=== PATIENT | male | born 1985 | race Caucasian/White ===

== ENCOUNTER → 2023-12-08 08:55 | Outpatient (REF) | payer SELFPAY | LOC: HWRAD 08:55 | PROVIDERS: ATTENDING PHYSICIAN Student in an Organized Health Care Education/Training Program | DX: I73.9 Peripheral vascular disease, unspecified (principal); G89.29 Other chronic pain | CPT/HCPCS: 74177; Q9967 ==

== ENCOUNTER 2023-12-29 23:37 | Inpatient (IN) | payer MEDICAID, SELFPAY ==
[2023-12-29 18:30] VITALS: BP 122/68
[2023-12-29 18:57] LABS: % Basophils 0.3 % (0-2); % Eosinophils 0.3 % (0-6); % Immature Granulocytes 0.5 % (0-0.5); % Lymphocytes 6.7 % (20.5-51.1); % Monocytes 6.3 % (1.7-9.3); % Neutrophils 85.9 % (42.2-75.2); Absolute Basophils 0.1 10^3/uL (0-0.2); Absolute Eosinophils 0.1 10^3/uL (0-0.7); Absolute Immature Granulocytes 0.1 10^3/uL (0-0.05); Absolute Lymphocytes 1.2 10^3/uL (1.2-3.4); Absolute Monocytes 1.1 10^3/uL (0.1-0.6); Absolute Neutrophils 15.2 10^3/uL (1.4-6.5); Hematocrit 38.4 % (39.0-52.0); Hemoglobin 13.8 g/dL (13.0-18.0); Mean Corp Hgb Conc. 35.9 g/dL (33.0-37.0); Mean Corpuscular Hgb 29.2 pg (27.0-31.0); Mean Corpuscular Volume 81.2 fL (80.0-94.0); Nucleated Red Blood Cells % 0 % (-); Platelet Count 282 10^3/uL (130-400); Red Blood Cell Count 4.73 10^6/uL (4.70-6.10); Red Cell Dist. Width 12.8 % (11.5-14.5); White Blood Cell Count 17.7 10^3/uL (4.8-10.8)
--- NOTE | 2023-12-29 18:59 | ED.GENMED ---
History of Present Illness
General
Chief Complaint: Headache
Source: patient and family (Mother and father)
Exam Limitations: none
Time Seen by Provider: 12/29/23 18:41
Nursing documentation reviewed up to this point in time: agreed with
Travel History
Have you had any contact with someone who has COVID-19?: No
Do you have any symptoms of coronavirus? Fever > 100 degrees, chills, cough, shortness of breath, sore throat, loss of taste or smell, muscle aches, or headache?: No
History of Present Illness
History of Present Illness:
38-year-old male with past medical history of chronic low back pain and sciatica status post L4-L5 laminectomy in 2017 who had a recent trial of spinal stimulator that was removed at [facility] yesterday who presents to the emergency room with
his parents for evaluation of headache. Patient reports that he had the spinal stimulator removed yesterday at [facility]. He says that shortly thereafter he started to have positional headache and decided to stop on his way home at [facility] in the emergency room to be assessed. While he was there he had full workup including CT head, MRI of the lumbar spine, labs�CT head was negative, MRI showed signs concerning for small CSF leak. Apparently neurosurgery was consulted and
patient says that they opted for conservative approach without any intervention and watchful waiting. He has been taking Tylenol and Motrin today but says that his headache is becoming progressively worse and now is quite severe which prompted him
to come to the emergency room to be reassessed. He says in addition to his headache today he has had low-grade fevers at home with a Tmax of 99.9 �F�this in the setting of taking Tylenol and Motrin as above. He says he has had some chills. He has
had nausea but fortunately no vomiting. He complains of photosensitivity. He reports some pain and stiffness in his neck. He denies any chest pain or abdominal pain. He says he has some mild low back pain with some radicular symptoms consistent
with his typical sciatica but that this is no worse than usual. He denies any other complaints.
Past History
Past History
ED Past Medical History: None
Review of Systems
Review of Systems
All Other Systems: ROS reviewed and negative except as documented in HPI and ROS
Constitutional: Reports fever and chills
EENT: Denies sore throat or runny nose
Respiratory: Denies cough or trouble breathing
Cardiac: Denies chest pain or palpitations
ABD/GI: Reports nausea; Denies abdominal pain or vomiting
: Denies flank pain
Musculoskeletal: Reports neck pain and back pain (Chronic)
Neurological: Reports headache; Denies dizzy, weakness or numbness
Phy Exam
Physical Exam
Physical Exam:
General: Awake, alert, appears very uncomfortable sitting with his eyes closed, towel draped over his head
Head: Normocephalic, atraumatic
Eyes: Conjunctiva normal, EOMI, pupils 5 mm and reactive to light bilaterally
Throat: Airway intact, handling secretions
Neck: Trachea midline, some nuchal rigidity on attempts at passive range of motion of the neck
Lungs: Clear to auscultation bilaterally, no wheezing, rales, rhonchi
Heart: Tachycardia with regular rhythm, no murmurs, gallops, or rubs
Abd: Soft, non distended, nontender
Neuro: Cranial nerves grossly intact, speech fluid, no motor or sensory deficits
Skin: no rash
Extremities: No edema in extremities, equal pulses in all extremities
Scores
Heart Failure Risk
Heart Failure Risk Score: Not Applicable
Heart Score for Chest Pain Patients
STEMI patient?: Not applicable
Withdrawal Assessment of Alcohol
Withdrawal Assessment Completed?: Not applicable
Course
Orders/Labs/Results
Orders:
Orders
12/29/23 18:41
CT Head W/o Iv Contrast Urgent
Comment:
Reason For Exam: headache
12/29/23 18:43
Electrocardiogram (*1) Urgent
Reason for Study: Bradycardia / Tachycardia
EKG- Treatment ONCE
12/29/23 18:45
Complete Blood Count/With Diff Urgent
Comprehensive Metabolic Panel Urgent
Magnesium Urgent
12/29/23 18:58
0.9% Sodium Chloride 500 ml [Nss] 500 ml IV BOLUS
Diphenhydramine [Benadryl] 25 mg IV NOW STA
Ketorolac [Toradol] 15 mg IV NOW STA
Metoclopramide [Reglan] 10 mg IV NOW STA
12/29/23 19:58
CSF Cell Count Stat
Date Specimen was Collected: 12/29/23
Time Specimen was Collected: 22:10
Spinal Fluid Glucose Urgent
Date Specimen was Collected: 12/29/23
Time Specimen was Collected: 22:11
Spinal Fluid Protein Urgent
Date Specimen was Collected: 12/29/23
Time Specimen was Collected: 22:11
CSF Culture with Gram Stain Urgent
THOMAS Source: Csf
Specimen Description:
Date Specimen was Collected: 12/29/23
Time Specimen was Collected: 22:11
Meningitis Panel, CSF by PCR Urgent
THOMAS Source: Csf
Specimen Description:
12/29/23 19:59
CSF Cell Count Urgent
Date Specimen was Collected: 12/29/23
Time Specimen was Collected: 22:10
CSF Tube Number: 1
Comment: Tube #1
12/29/23 20:03
Dexamethasone Sod Phosphate [Decadron] 12 mg IV NOW STA
12/29/23 20:04
Cefepime HCl [Maxipime] 2,000 mg IV NOW STA
12/29/23 20:42
Vancomycin [Vancocin] 2,000 mg 0.9% Sodium Chloride 500 ml [Nss] 500 ml IV NOW
Abnormal Lab Results
12/29/23
18:45
WBC 17.7 H 10^3/uL
(4.8-10.8)
Hct 38.4 L %
(39.0-52.0)
MPV 11.0 H fL
(7.4-10.4)
Abs Immat Gran (auto) 0.1 H 10^3/uL
(0-0.05)
Absolute Neuts (auto) 15.2 H 10^3/uL
(1.4-6.5)
Absolute Monos (auto) 1.1 H 10^3/uL
(0.1-0.6)
Neutrophils % 85.9 H %
(42.2-75.2)
Lymphocytes % 6.7 L %
(20.5-51.1)
Carbon Dioxide 20 L mmol/L
(22-30)
Glucose 128 H mg/dl
(70-99)
12/29/23 18:45
12/29/23 18:45
Vital Signs
Initial and Last Documented VS:
Initial Vital Signs
Temp Pulse Resp BP Pulse Ox
37.7 C 102 18 122/68 98
12/29/23 18:30 12/29/23 18:30 12/29/23 18:30 12/29/23 18:30 12/29/23 18:30
Last Documented Vital Signs
Temp Pulse Resp BP Pulse Ox
37.7 C 79 16 123/71 96
12/29/23 18:30 12/29/23 22:00 12/29/23 22:00 12/29/23 22:00 12/29/23 22:00
Procedures
Lumbar Puncture
Indication for procedure:: headache
Procedure completed by: Dennis Starks MD
Consent form signed: Yes
Anesthesia/sedation: 1% Lidocaine
Preparation: cleaned with Betadine
Position: decubitis
Needle Size: 20 gauge
Needle Type: Lumbar Needle
Number of attempts: 3
Dressing applied to puncture site: bandaid
Complications: none
MDM/Problems Addressed
Differential Diagnosis Includes:
CSF leak/spinal headache, migraine headache, meningitis, subarachnoid hemorrhage
MDM/Problems Addressed:
38-year-old male presents to the emergency room complaining of severe headache 24 hours status post spinal stimulator removal for chronic low back pain with sciatica. He says symptoms started a few hours after removal of his spinal stimulator and
was seen at [facility] last night by neurosurgery had MR of the lumbar spine concerning for possible CSF leak also had CT head at that time which was negative. Discharged with supportive care to start. He says that they discussed potential
blood patch but opted against it. Symptoms worsening today and he was having fevers and chills which prompted re-visit to the ER. He is tachycardic but otherwise normal vitals. Exam as above. Plan to place an IV check labs including a CBC and
CMP. Hold on repeat CT as he had one less than 24 hours ago. Will treat symptomatically. Reassess after the above
Case discussed with neurology�recommended proceeding with repeat CT head given worsening of his headache. Recommended proceeding with lumbar puncture pending CT head to rule out meningitis. Reassess after the above.
Clinical reassessment after treatment with Toradol, Reglan/Benadryl, fluids patient is feeling much better�headache went from 10/10 to a 2/10 per patient. His initial labs show a leukocytosis to 17.7 of unclear clinical significance given his
recent procedure. His CMP is unremarkable. Awaiting results of CT head and will proceed with lumbar puncture to rule out meningitis.
CT head negative for any acute pathology. Lumbar puncture performed at bedside as documented procedure note. Tubes slightly yellow-tinged/turbid. Discussed with neurology recommended treating with IV steroid, empiric antibiotics with cefepime and
vancomycin for possible meningitis. Will admit for continued monitoring, follow-up CSF cultures, neurology consultation. Discussed with hospitalist for admission.
Chronic conditions affecting care:
Chronic back pain
*Radiology
Radiology exam reviewed: radiology read reviewed
*Pulse Oximetry
Patient hypoxic: no
*EKG
Interpreted by ED Provider?: Yes
Heart Rate: 75
Rate: normal
Rhythm: sinus
[place]: normal axis
Interval: normal interval
QRS Pattern: normal QRS
Ischemia: no ischemia
*Critical Care Note
Total Time (30-74mins, 75-104mins- exclusive of procedures): Not Applicable
Data Reviewed
Review of Other/Old Records Reveals: Labs and Records (Reviewed external labs, imaging studies from [facility] visit last night)
Source: patient and family
Patient Management
Discussion with other providers: Hospitalist (Discussed with hospitalist) and Air Technician (Discussed with neurology)
Escalation/DeEscalation of care consider admission/obs:
Admission indicate
ED Attending Note
-
Portions of this chart may have been created with voice recognition software.� Occasional wrong word or��sound alike� substitutions may have occurred due to the inherent limitations of voice recognition software.
Discharge Plan
Departure
Patient Disposition: Admit
Date of Disposition: 12/29/23
Time of Disposition: 22:16
Admit to doctor: Elizabeth
Presentation/result/management discussed w/ accepting MD/DO: Hospitalist
Discharge Problem:
Headache
Prescriptions:
No Action
multivitamin Tablet
1 tab PO DAILY
acetaminophen [Tylenol Extra Strength] 500 mg Tablet
1,000 mg PO DAILYPRN PRN (Reason: mild pain)
ibuprofen [Advil] 200 mg Tablet
400 mg PO DAILYPRN PRN (Reason: mild pain)
Referrals:
Chinedu Lopez MD [Family Provider] -
Interventions
Interventions:
*Risk Screen - Suicide Last Done: 12/29/23 18:30
*General Assessment Last Done: 12/29/23 18:30
*Neglect/Abuse Screening Last Done: 12/29/23 18:30
*ED COVID-19 Vaccine History Last Done: 12/29/23 18:30
ED- Neurological Assessment Last Done: 12/29/23 18:57
Discharge Date and Time
Print Language: NORWEGIAN
[2023-12-29] MEDS: BENADRYL 25 MG IV (19:01)
[2023-12-29] MEDS: NSS 500 IV (19:01)
[2023-12-29] MEDS: TORADOL 15 MG IV (19:02)
[2023-12-29] MEDS: REGLAN 10 MG IV (19:02)
[2023-12-29 19:03] VITALS: BP 131/63
[2023-12-29 19:18] LABS: ALT (SGPT) 16 U/L (0-50); AST (SGOT) 23 U/L (17-59); Alkaline Phosphatase 65 U/L (38-126); Blood Urea Nitrogen 13 mg/dl (9-20); Calcium 10.2 mg/dl (8.4-10.2); Carbon Dioxide 20 mmol/L (22-30); Chloride 105 mmol/L (98-107); Glucose 128 mg/dl (70-99); Magnesium 1.8 mg/dl (1.6-2.3); Potassium 3.9 mmol/L (3.5-5.1); Sodium 137 mmol/L (135-145); Total Bilirubin 1.1 mg/dl (0.2-1.3); Total Protein 7.3 g/dl (6.3-8.2); eGFR > 60.00
[2023-12-29 20:00] VITALS: BP 123/61
[2023-12-29] MEDS: MAXIPIME 2000 MG IV (20:57)
[2023-12-29] MEDS: VANCOCIN 540 MG IV (20:57)
[2023-12-29] MEDS: DECADRON 12 MG IV (20:57)
[2023-12-29 21:06] VITALS: BP 119/62
[2023-12-29 22:00] VITALS: BP 123/71
--- NOTE | 2023-12-29 22:17 | HPS.HSE ---
Addendum entered and electronically signed by Waleska Johnson MD 12/29/23 23:34:
CSF with elevated WBC; 7% lymphocytes
Xanthochromia with declining WBC from tube 1 to 4 (traumatic tap)
results confirm bacterial meningitis
continue coverage with vanc/cefepime given recent procedure
ID consult placed
Original Note:
Family Physician
-
Family Physician: Chinedu Lopez
Chief Complaint
-
fever, headache, neck pain
History of Present Illness
Mr. Karthik Whitmore is a 38 yo man with hx chronic low back pain and sciatica s/p L4-L5 Laminectomy 2016, recent trial Spinal Stimulator removed at [facility] yesterday presents to the ER with MACHADO.
Patient had MACHADO post removal stimulator yesterday and went to [place] ER. At [place] had CT head (nl) and MRI lumbar spine showing concern for small CSF leak. Report reads 'small amount of fluid in the lumbar paraspinal soft tissues may represent indirect
evidence of CSF leak, however no dural tear/ discontinuity is directly visualized.' Neurosurgery was consulted and they stated conservative approach with watchful waiting was okay. Pain progressed prompting ER visit to today.
Patient states MACHADO was completely resolved at end of ER visit yesterday however today came back 'with a vengeance.' He was taking tylenol and motrin but had low grade fever. + neck stiffness. no nausea/vomiting. no abdominal pain. no rash. no
LE swelling.
Patient states spinal stimulator helped with pain and he is scheduled for permanent implant in January.
Medical History
Past Medical History
Past Medical History: Reports Other (chronic low back pain and sciatica s/p L4-L5 Laminectomy 2017 )
Past Surgical History: Reports Other (see above; recent trial spinal stimulator )
Social History
Tobacco: Non-smoker
Alcohol: None
Family History
Family History: Not pertinent
Allergies / Home Medications
Allergies reflects when Allergies were last updated in [facility].
Home Medications with original date entered in [facility]
Allergy/Medication List:
Allergies
Allergy/AdvReac Type Severity Reaction Status Date / Time
No Known Allergies Allergy Unverified 08/13/16 16:31
Home Medications
multivitamin 1 tab PO DAILY 08/31/23
acetaminophen 500 mg tablet (Tylenol Extra Strength) 1,000 mg PO DAILYPRN PRN mild pain 12/29/23
ibuprofen 200 mg tablet (Advil) 400 mg PO DAILYPRN PRN mild pain 12/29/23
Review of Systems
-
History Source: Patient
A 12 point ROS was completed and negative except as noted: Yes
Physical Exam
Vital Signs
Vital Signs
Temp Pulse Resp BP Pulse Ox
99.8 F 79 16 123/71 96
12/29/23 18:30 12/29/23 22:00 12/29/23 22:00 12/29/23 22:00 12/29/23 22:00
Physical Exam
General: No Apparent Distress
HEENT: PERRLA
Respiratory: Clear; No Wheezes
Cardiac: S1/S2 and Regular Rhythm
GI: Soft and Non Tender
Musculoskeletal: No Edema
Skin: Warm and Dry; No Rash
Neuro: AO x 3
Psych: Calm
Laboratory Results
-
12/29/23 18:45
12/29/23 18:45
Laboratory Results
Total Bilirubin 1.1 mg/dl (0.2-1.3) 12/29/23 18:45
AST 23 U/L (17-59) 12/29/23 18:45
ALT 16 U/L (0-50) 12/29/23 18:45
Alkaline Phosphatase 65 U/L (38-126) 12/29/23 18:45
Data Reviewed
-
Diagnostic Radiology: Report Reviewed by me
Lab Data: Labs Reviewed by me
Impression/Plan
-
Mr. Karthik Whitmore is a 38 yo man with hx chronic low back pain and sciatica s/p L4-L5 Laminectomy 2017, recent trial Spinal Stimulator removed at [facility] yesterday presents to the ER with MACHADO.
Triage VS: T 37.7C, P 102, RR 18, BP 122/68, SpO2 98%
LABS: WBC 17.7, Hg 13.8, PLT 282, Na 137, K+ 3.9, CO2 20, Glucose 128, liver enzymes WNL
CSF studies pending
HEAD CT
IMPRESSION:
No evidence of acute intracranial abnormality.
MAR: IV Decadron, Cefepime, Vanc, Toradol, NS bolus, Reglan, Benadryl
Headache/Fever/Neck Stiffness
Possible small CSF Leak
Recent removal trial Spinal Stimulator
-admit to tele
-awaiting cerebral spinal fluid studies
-continue broad spectrum abx Vanc/Cefepime + Decadron. He is not immunosuppressed
-IVF 1L
-Neuro consulted
-will consult ID if CSF results confirm bacterial meningitis
-*Dr. Starks discussed case with [facility] who are not concerned about very small finding of possible CSF leak on imaging yesterday and stated no intervention or transfer required.
Chronic low back pain
hx L4-L5 Laminectomy
-plans for permanent stimulator with [facility] beginning of January
DVT PPx SCD
FULL CODE
[2023-12-29 22:37] LABS: Spinal Fluid Glucose 41 mg/dl (40-70)
[2023-12-29 22:45] LABS: Spinal Fluid Protein 407 mg/dl (12-60)
[2023-12-29 22:59] LABS: CSF Clarity Hazy; CSF Color Red; CSF Tube # 1
[2023-12-29 23:00] VITALS: BP 122/66
[2023-12-29 23:00] LABS: White Cell Count/CSF 5541 mm^3 (0-5)
[2023-12-29 23:01] LABS: Red Cell Count/CSF 6000 mm^3; Spinal Fluid Granulocytes 94 %
[2023-12-29 23:02] LABS: CSF Clarity Hazy; CSF Color Xanthochromic; CSF Tube # 4; Spinal Fluid Lymphocytes 2 %; Spinal Fluid Macrophages 4 %
[2023-12-29 23:03] LABS: Red Cell Count/CSF 118 mm^3; Spinal Fluid Granulocytes 90 %; Spinal Fluid Lymphocytes 7 %; Spinal Fluid Macrophages 3 %; White Cell Count/CSF 6344 mm^3 (0-5)
[2023-12-30] VITALS (8 sets, daily range): BP systolic 113–128; BP diastolic 59–69; BMI 24.6
[2023-12-30] MEDS: NSS 1000 IV (00:50)
[2023-12-30] MEDS: TYLENOL 650 MG PO ×2 (01:06→18:13)
[2023-12-30] MEDS: DECADRON 12 MG IV ×2 (01:14→07:39)
[2023-12-30] MEDS: MAXIPIME 2000 MG IV ×3 (03:45→20:48)
[2023-12-30] MEDS: STERILE WATER FOR INJECTION 10 ML IV ×3 (03:49→20:49)
[2023-12-30 05:37] LABS: % Basophils 0.2 % (0-2); % Eosinophils 0.1 % (0-6); % Immature Granulocytes 0.7 % (0-0.5); % Lymphocytes 3.7 % (20.5-51.1); % Monocytes 2.8 % (1.7-9.3); % Neutrophils 92.5 % (42.2-75.2); Absolute Immature Granulocytes 0.1 10^3/uL (0-0.05); Absolute Lymphocytes 0.7 10^3/uL (1.2-3.4); Absolute Monocytes 0.5 10^3/uL (0.1-0.6); Absolute Neutrophils 17.5 10^3/uL (1.4-6.5); Hematocrit 38.5 % (39.0-52.0); Hemoglobin 13.2 g/dL (13.0-18.0); Mean Corp Hgb Conc. 34.3 g/dL (33.0-37.0); Mean Corpuscular Hgb 29.1 pg (27.0-31.0); Mean Corpuscular Volume 84.8 fL (80.0-94.0); Mean Platelet Volume 11.8 fL (7.4-10.4); Nucleated Red Blood Cells % 0 % (-); Platelet Count 233 10^3/uL (130-400); Red Blood Cell Count 4.54 10^6/uL (4.70-6.10); Red Cell Dist. Width 12.7 % (11.5-14.5)
[2023-12-30 06:10] LABS: Blood Urea Nitrogen 15 mg/dl (9-20); Calcium 9.6 mg/dl (8.4-10.2); Carbon Dioxide 19 mmol/L (22-30); Chloride 110 mmol/L (98-107); Estimated Creatinine Clearance > 125 ml/min; Glucose 145 mg/dl (70-99); Magnesium 2.1 mg/dl (1.6-2.3); Potassium 4.2 mmol/L (3.5-5.1); Sodium 139 mmol/L (135-145); eGFR > 60.00
--- NOTE | 2023-12-30 08:16 | CON.NEURO ---
Neuro Assessment/Plan
Assessment
IMPRESSIONS/RECOMMENDATIONS:
Abrupt onset headache and neck pain
With highly abnormal CSF and recent extraction of dorsal root ganglion spinal cord stimulator
Differential diagnosis currently includes presumed bacterial and aseptic meningitis
There is the possibility of a dural tear leading to the entirety of changes with the CSF suggested by MRI of the lumbar spine performed prior to this admission
Plan
Will reduce dexamethasone dosing from 12 mg every 6 hours to dosing of 10 mg every 6 hours
Continue antibiotic coverage
Appreciate infectious disease evaluation and treatment
Consult neurosurgery due to lack of clarity regarding the possibility of a dural leak
Continue patient on bedrest at this time with consideration for lumbar puncture repeat in several days to determine if there is improvement in CSF findings or should the patient have a decline in function
DVT prophylaxis with enoxaparin
Will continue to follow patient. Thank you.
Consultation
Order
Date of Consultation: 12/30/23
Requesting Provider: Hospitalists
Reason for Consult: Headache
Subjective/Objective
Subjective Data
Date of Service: December 30, 2023
This is 38 year old right handed male patient with a no other medical history other than back pain who presented to the ER 12/29/2023 with severe headache, neck pain an low grade fever s/p DRG stimulator trial removal 12/28/2023
In 2016 patient started with lower back pain L4-L5 with L sciatica pain worse when sitting. In 2017 he had decompression surgery in [place], that did relieve some symptoms. He did have left LE weakness that did require rehab to regain strength
after surgery. He did continue to have severe sciatic pain with sitting post operatively. Since he was having difficulty getting additional relief of pain in [place] he decided to come back to the [facility] for medical care. He was seen at [facility] (Dr. Fields) June 2023 and had MRI completed that showed pseudo meningeal seal L-4/L-5 and outpouching of fluid at S1. He then was instructed to follow with pain management and had TF-DEXTER at S1 that did relieve pain.
He has second opinion at [facility] (Dr. Chavira), July 2023, had an EMG that did confirm S1 radiculopathy. He also had a myelogram that showed outpouching of thecal sac. At [facility] he had a spinal cord stimulator placed thoracic
spine, but he continued to have pain when sitting. They decided to trial a DRG stimulator on 12/21/2023. This was placed at L5-S1. Post operatively they did note clear fluid that they thought may be sweating related to bandage as he had no headache
or neck discomfort. 12/28/2023 he had device removed and he had leakage of a large amount of clear fluid. Again he had no headache, neck pain or changes in ear pressure. They felt that this may have just been a collection of serous fluid from
procedure and allowed him to go home.
On the way home he started with a severe headache with improvement laying down and presented to the ER at [place] [facility] 12/28/2023. While there he had a MRI that showed stable areas of thecal sac/nerve root dural irregularities. Some very small amount of
possible new T2 signal adjacent to L L5 nerve root. No obvious CSF in muscle, above fascia or subcutaneous tissues. He was evaluated by neurosurgery, he had no additional CSF fluid leakage at puncture sites with a non-focal neurologic exam they
recommended bed rest for a week and to follow-up with [facility].
Overnight symptoms got significantly worse he had a severe headache posterior, throbbing. He reports pain 11/10 at the time of initial presentation. He also reported severe neck pain and limited range of motion of his neck. He also started with a
low-grade fever of 99 which prompted him to come to the [place] emergency department.
Head CT with no evidence of acute intracranial abnormality.
Lumbar puncture CSF appearance hazy, CSF WBC 6344, CSF protein 4 7, CSF glucose 41.
It was presumed he had bacterial meningitis and antibiotics were started cefepime and vancomycin.
He was given Ketorolac, metoclopramide and diphenhydramine for headache. He was also started on steroids.
Today he reports his headache is much better. Neck pain is also improved as well as R
OM. Reports residual pain 2/10, still posterior. He also reports some mild pressure in his lower back.
Objective Data
Vital Signs
Temp Pulse Resp BP Pulse Ox
37.1 C 67 16 122/59 95
12/30/23 03:27 12/30/23 03:27 12/30/23 03:27 12/30/23 03:27 12/30/23 03:27
Lab Results
12/30/23 04:28
12/30/23 04:28
Sodium 139 mmol/L (135-145) 12/30/23 04:28
Potassium 4.2 mmol/L (3.5-5.1) 12/30/23 04:28
BUN 15 mg/dl (9-20) 12/30/23 04:28
Glucose 145 mg/dl (70-99) H 12/30/23 04:28
Calcium 9.6 mg/dl (8.4-10.2) 12/30/23 04:28
Patient Allergies
No Known Allergies Allergy (Unverified 08/13/16 16:31)
Review of Systems
-
History Source: Patient
All other systems: Reviewed and negative
EENT: Negative Decreased Vision or Swallowing Difficulty
Respiratory: Negative Trouble Breathing
Cardiac: Negative Chest Pain
Abdomen/GI: Negative Incontinence of Stool
Genitourinary: Negative Incontinence
Musculoskeletal: Back Pain (pressure 3/10) and Neck Pain (3/10 intensity); Negative Muscle Weakness
Neuro: Headache (posterior); Negative Dizzy
Physical Exam
-
General: No Apparent Distress and Appears Stated Age
Eyes: OU Absent Papilledema, Round OU, [place] Conjunctivae and No Ptosis
HEENT: Anicteric and Moist Mucous Membranes
Neck: Full Range of Motion
Respiratory: No Dyspnea
Cardiac: No JVD
GI: Soft
Skin: Unremarkable
Extremities: No Clubbing, No Cyanosis and No Edema
Psych: Intact Judgement/Insight
Extended Neurological Exam
Mood & Affect: Mood Unremarkable and Affect Unremarkable
Attention Span & Concentration: Awake, Alert, Interactive and No Difficulty with 2 Step Request
Memory: Unremarkable
Tremor: Hand Tremor Absent and Head Tremor Absent
Speech: Quality Unremarkable and Quantity Unremarkable
Cranial Nerve II: Left Eye: Pupillary Reactivity Unremarkable, Pupillary Size Unremarkable and Visual [place] Intact
Cranial Nerve II: Right Eye: Pupillary Reactivity Unremarkable, Pupillary Size Unremarkable and Visual [place] Intact
Cranial Nerves III, IV, : Extraocular Movement: Extraocular Movement Full in all Directions
Cranial Nerve V: Facial Sensation: Facial Sensation Unremarkable to Cold
Cranial Nerve VII: Facial Symmetry: Normal Facial Symmetry
Cranial Nerve VIII: Hearing: Unremarkable Hearing to Normal Conversational Volume
Cranial Nerves IX, X: Palate Movement: Palate Elevation Symmetric
Cranial Nerve XI: Shoulder Shrug: Unremarkable
Cranial Nerve XII: Tongue Protusion: Midline
Muscle Strength, Overall: Full Throughout
Muscle Bulk & Tone: Bulk Unremarkable and Tone Unremarkable
Pronator Drift: No Drift in Upper Extremities
Deep Tendon Reflexes: Unremarkable Throughout and 3+ (Left adductor)
Cold Sensation: Unremarkable
Vibration Sensation: Unremarkable
Coordination: Hfclao-jfbo-gknucx Testing Unremarkable and Lwsh-Iwcd-Bqio movements intact bilaterally
Babinski Sign: Absent Bilaterally
Data Reviewed
-
MRI Lumbar Spine: Report Reviewed
Labs: Report Reviewed
Reviewed with: Physician, Nurse Practioner, Patient and Family
Old Records: Summarized
Medications
-
Active Medications
Generic Name Dose Route Start Last Admin
Trade Name Freq PRN Reason Stop Dose Admin
Acetaminophen 650 mg 12/30/23 00:35 12/30/23 01:06
Acetaminophen 325 Mg Tablet PO 01/27/24 00:34 650 mg
Q4HPRN PRN Administration
mild pain/MACHADO/temp> 100.4F
Bisacodyl 10 mg 12/30/23 00:35
Bisacodyl 10 Mg Rectal Suppository RECTAL 01/27/24 00:34
[id number] PRN
constipation
Cefepime HCl 2,000 mg 12/30/23 04:00 12/30/23 03:45
Cefepime Hcl 2,000 Mg/12.5 Ml Vial IV 2,000 mg
Q8H NAVIN Administration
Dexamethasone Sodium Phosphate 12 mg 12/30/23 02:00 12/30/23 07:39
Dexamethasone 4 Mg/Ml 1 Ml Vial IV 01/27/24 01:59 12 mg
Q6H NAVIN Administration
Sodium Chloride 1,000 mls @ 80 mls/hr 12/30/23 00:35 12/30/23 00:50
Nss IV 12/30/23 13:04 1,000 mls
.[id number] NAVIN Administration
Vancomycin HCl 1 each/ Device 0 mls @ 0 mls/hr 12/30/23 00:35
IV
PER PROTOCOL NAVIN
As Directed
Polyethylene Glycol 17 grams 12/30/23 00:35
Polyethylene Glycol Powder 17 Grams Packet PO 01/27/24 00:34
DAILYPRN PRN
constipation
Senna/Docusate Sodium 1 tablet 12/30/23 00:35
Docusate W/Senna (Angie-Colace) Tablet PO 01/27/24 00:34
BIDPRN PRN
constipation
Sodium Chloride 0 flush 12/29/23 23:00
Sodium Chloride 0.9% (Flush) Syringe IV 01/26/24 22:59
PER PROTOCOL NAVIN
Sterile Water 10 ml 12/30/23 04:00 12/30/23 03:49
Sterile Water For Injection 10 Ml Vial IV 01/27/24 03:59 10 ml
Q8H NAVIN Administration
Home Medications
�Medication �Instructions �Recorded
multivitamin 1 tab PO DAILY 08/31/23
acetaminophen 500 mg tablet 1,000 mg PO DAILYPRN PRN mild pain 12/29/23
(Tylenol Extra Strength)
ibuprofen 200 mg tablet (Advil) 400 mg PO DAILYPRN PRN mild pain 12/29/23
Past History
Past History
ED Past Medical History: None
ED Past Surgical History: Orthopedic (L4-5 hemilaminectomy 2017) and Other (spinal cord stimulator inserted and removed)
Social History
Tobacco: Non-smoker
Alcohol: None
Drug: None
Employment: Employed
Family History
Family History: Other (reviewed and non-contributory)
--- NOTE | 2023-12-30 09:21 | PHA.VAN.IN ---
Assessment
- Assessment
Renal Function: Unknown baseline
Maximum Temperature: 99.8
Minimum Temperature: 98.5
Concomitant Antimicrobials: cefepime 2 g q8
AUC Dosing Plan
- Dosing Variables
Dosing Weight (kg): 82
Dosing CrCl (ml/min): 125
Vd coefficient (L/kg): 0.7
- Empiric Dosing
Initial / Loading Dose: 2000mg ( 24 mg/kg) 12/28 20:57
Maintenance Regimen: vanc 1000mg q8h
Estimated AUC (mcg*h/mL): 509
Estimated Peak (mcg*h/mL): 30.1
Estimated Trough (mcg/ml): 14.1
Estimated Half Life (H): 6.4
- Monitoring
Peak level is ordered to be drawn (date/time): 12/30 29
Trough level is ordered to be drawn (date/time): 12/30 529
Levels to be Drawn after Dose #: 3
Pharmacokinetics Vancomycin I
- -
Patient Age: 38
Patient Sex: Male
Vancomycin Day #: 1
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
Requesting Provider: Dr Johnson
Pertinent Antimicrobial Allergies:
NKA
Height / Weight:
Height 6 ft
Actual Weight 82.191 kg
Pertinent Past Medical History: spinal stimulator removal at [facility]SH 12/28
- Vital Signs / Lab Results
Temp Pulse Resp BP Pulse Ox
98.5 F 69 18 123/66 96
12/30/23 07:35 12/30/23 07:35 12/30/23 07:35 12/30/23 07:35 12/30/23 07:35
Lab Results - Hematology
12/29/23 12/30/23
18:45 04:28
WBC 17.7 H 19.0 H
Lab Results - Chemistry
12/29/23 12/30/23
18:45 04:28
BUN 13 15
Creatinine 0.9 0.8
Estimated Creat Clear > 125
Albumin 5.0
Microbiology Results
12/29/23 22:15 Gram Stain - Preliminary
Csf
12/29/23 22:14 Meningitis/Encephalitis Panel (PCR) - Final
Csf
--- NOTE | 2023-12-30 10:37 | CON.ID ---
Consultation
-
Date/Time Consultation Requested: 12/30/2023 00:35
Date/Time Consultation Performed: 12/30/2023 08:38
Requesting Provider: Dr. Johnson
Performing Provider: Dr. Lopez
Reason for Consultation: Meningitis
Chief Complaint / Past History
History of Present Illness
Karthik Whitmore is a 38-year-old man with a significant past medical history of recent temporary spinal stimulator removal being evaluated at the request of Dr. Johnson in regards to meningitis. History is obtained from chart review, along with
patient interview.
The patient has a long history of chronic low back pain and sciatica and reports that he underwent an L4-5 laminectomy in 2016 while residing in [facility]. Over the intervening years he had continued discomfort with his sciatica, and ultimately was
evaluated first at [facility], and then subsequently down at [facility], where a temporary spinal stimulator was placed in the thoracic area in September. He reports he did well thereafter, achieving some relief. He had another spinal stimulator
('DRG') placed in the L5/S1 area on 12/21/23. During the time he was in, he notes that there appeared to be some leakage of fluid. Approximately 2 days ago the leads were pulled at [facility]. He was discharged, but on the way home from
[place] he developed significant headache and stopped at the emergency room at [facility] where a CT and MRI were performed. The MRI of the lumbar area showed a 'minor leak'. He evidently was evaluated by Neurosurgery, and was to proceed with
conservative therapy.
Yesterday a.m. he developed the rapid onset of fever (99.9 after taking prior Tylenol and Motrin) along with a stiff neck. He then came to the emergency room here at [facility] where an LP was performed and he was subsequently placed on
empiric antibiotics.
Since admission he has denied any fevers or chills. He notes that his neck discomfort has improved. Additionally, headache has improved.
Past History
Past Medical History: Other (Chronic LBP /sciatica)
Additional Past Surgical History:
Left arm cubital tunnel Sx
L4-5 laminectomy (2017; in [facility])
Allergy History:
No Known Allergies Allergy (Unverified 08/13/16 16:31)
Medications Reviewed: Yes
Current Antibiotics:
Vancomycin (dosed per pharmacy)
Cefepime 2 g IV every 8 hours
Social History
Tobacco: Non-Smoker
Alcohol: None
Drug: None
Personal: Single
Living: With Family
Employment: Employed ([employer]
Family History
Family History: Not Pertinent
Review of Systems
Vital Signs
Temp Pulse Resp BP Pulse Ox
98.5 F 69 18 123/66 96
12/30/23 07:35 12/30/23 07:35 12/30/23 07:35 12/30/23 07:35 12/30/23 07:35
Physical Exam
Physical Exam
Constitutional: No Acute Distress, Well Developed, Comfortable and Non-toxic
Head: Normocephalic
Eyes: Pupils Equal, Pupils Round, No Conjunctival Hemorrhage and Sclera Anicteric
Oral: No Thrush and No Ulcers
Cardiovascular: Regular Rate and S1/S2; Negative S3/S4 or Murmur
Pulmonary: Clear and Non Labored; Negative Wheezes, Rales or Rhonchi
Gastrointestinal: Soft, Non Tender, Non Distended, Normal Bowel Sounds, No Rebound and No Guarding
Genito-Urinary: Negative Garcia
Extremities: Negative Edema, Cyanosis, Erythema, Splinter Hemorrhage, Venous Insufficiency or Janeway Lesions
Musculoskeletal: Negative Joint Swelling or Joint Effusion
Skin: Warm and Dry; Negative Rash or Jaundice
Neurological: Awake, Alert, Oriented and Meningeal Signs (Moderate nuchal rigidity and decreased active ROM)
Psychological: Calm
Lab / Diagnostic Study Results
12/30/23 04:28
12/30/23 04:28
Abs Immat Gran (auto) 0.1 10^3/uL (0-0.05) H 05/10/24 04:28
Absolute Neuts (auto) 17.5 10^3/uL (1.4-6.5) H 12/30/23 04:28
Absolute Lymphs (auto) 0.7 10^3/uL (1.2-3.4) L 12/30/23 04:28
Absolute Monos (auto) 0.5 10^3/uL (0.1-0.6) 12/30/23 04:28
Absolute Basos (auto) 0.0 10^3/uL (0-0.2) 12/30/23 04:28
Immature Gran % 0.7 % (0-0.5) H 12/30/23 04:28
Neutrophils % 92.5 % (42.2-75.2) H 12/30/23 04:28
Lymphocytes % 3.7 % (20.5-51.1) L 12/30/23 04:28
Monocytes % 2.8 % (1.7-9.3) 12/30/23 04:28
Eosinophils % 0.1 % (0-6) 12/30/23 04:28
Basophils % 0.2 % (0-2) 12/30/23 04:28
Microbiology Results
Micro:
12/29/23 22:15 Anaerobic Culture - Pending
Csf
12/29/23 22:15 CSF Culture - Pending
Csf Gram Stain -
NO ORGANISMS SEEN
MANY WBCS SEEN
12/29/23 22:14 Meningitis/Encephalitis Panel (PCR) - Final
Csf See below...
Meningitis Panel, CSF by PCR Final 12/30/23-0016
Escherichia coli K1 Not Detected
Haemophilus influenzae Not Detected
Listeria monocytogenes Not Detected
Neisseria meningitidis Not Detected
Cytomegalovirus (CMV) Not Detected
Streptococcus agalactiae Not Detected
Streptococcus pneumoniae Not Detected
Enterovirus Not Detected
Herpes simplex virus 1 Not Detected
Herpes simplex virus 2 Not Detected
Human herpesvirus 6 Not Detected
Human parechovirus Not Detected
Varicella zoster virus Not Detected
C. neoformans/gattii Not Detected
Imaging:
12/29/2023 CT head without contrast: No evidence of acute intracranial abnormality. Film personally viewed.
Assessment / Plan
Meningitis
Fever
MACHADO
Recent removal of spinal stimulator with suspected CSF leak
Recommendations:
CSF PCR panel noted to be negative, although given history of recent spinal stimulator implantation, likely organisms would be different than usual meningitis etiologies, and would include Staph aureus, Propionibacterium and streptococci (which are
not included on current PCR pane).
DDx also includes aseptic meningitis.
Continue with empiric abx.
Await cultures.
Follow white count and temperature curve.
Follow for clinical improvement.
Await further input from Neurosurgery.
Care Review
Plan reviewed with: Physician (Neurology, Primary service)
[2023-12-30] MEDS: VANCOCIN 200 IV ×3 (10:54→21:03)
--- NOTE | 2023-12-30 12:13 | CM ---
Reviewed the chart notes and spoke with the patient and his mother at the bedside. The patient resides with his parents in a two story home with no steps to enter. The patient reports no DME/VN/SNF in the past. The patient confirmed his pharmacy
of choice is the [facility]. CM continues to be available to patient/family and is monitoring medical plan for needs at discharge.
Plan: Discharge plans will depend on the patient's progress.
--- NOTE | 2023-12-30 12:30 | CON.NS ---
Consultation
-
Date/Time Consultation Performed: 12/30/2023; 12:30 pm
Performing Provider: Ladarius
Chief Complaint
History of Present Illness
This is a neurosurgical consultation on a 38-year-old gentleman, with a history of having an L4-L5 laminectomy in 2017, chronic low back pain, who presented to the emergency room yesterday evening for evaluation of headache. He had undergone a
recent trial of a DRG stimulator with removal of the leads at [facility] on 12/28/2023. Shortly thereafter, he started to have positional headaches, and on his way home, stopped at [facility] in the emergency room to be
assessed. There he had a full workup, which included a noncontrast head CT, MRI of the lumbar spine, and labs. MRI demonstrated possible signs concerning for small CSF leak. It is noted that neurosurgery was consulted there, and they recommended
conservative treatment with bedrest. He presented to the emergency room due to progressively worsening headache as well as low-grade fevers at home. He also had complaints of photosensitivity and stiffness in his neck. He underwent evaluation and
workup in the emergency room which included a lumbar puncture. He was started on empiric antibiotics.
CSF breakdown did demonstrate suspicion for possible infection, given elevated white blood cell count in CSF. cultures are still pending, there is no growth to date. Gram stain was negative. Infectious diseases following. Neurosurgery consulted
due to possible evaluation for CSF leak.
Further information gathered from directly logging into [facility] obtaining additional medical records. Patient has been suffering with intractable left lower extremity radiculopathy and pain dating back to 2016. He ultimately moved to
[facility] in 2017 for work reasons, and underwent an L4-5 laminectomy by neurosurgeon there. He reports that the surgery did not help with the symptoms. When coming back to the [facility] in 09/2022, he continued to follow-up with pain management,
and saw neurosurgery at [facility] in June 2023. At that time, he underwent a MRI scan which demonstrated postsurgical changes at L4-L5. It was recommended by the neurosurgeon there that he would not benefit from any additional
neurosurgery, and recommended pain management consultation.
Patient also underwent a spinal cord stimulator trial in September 2023, and felt that the stimulator trial went well, but did not solve the main issue of sitting pain and problems. Patient was diagnosed with a left S1 perineural cyst, and a
pseudomeningocele. Subsequently, a left L5, S1 DRG trial order sedation was offered to the patient.
Review of Systems
-
A 10 point review of systems including constitutional, ENT, cardiovascular, respiratory, GI, , neurologic, musculoskeletal, endocrinologic, hematologic, psychiatric, was performed, and was negative, except for as stated in HPI.
Medication and Allergies
Home Medications
Home Medications
�Medication �Instructions �Recorded
multivitamin 1 tab PO DAILY Supplement 08/31/23
acetaminophen 500 mg tablet 1,000 mg PO DAILYPRN PRN mild pain 12/29/23
(Tylenol Extra Strength)
ibuprofen 200 mg tablet (Advil) 400 mg PO DAILYPRN PRN mild pain 12/29/23
Allergies
Allergies
Allergy/AdvReac Type Severity Reaction Status Date / Time
No Known Allergies Allergy Unverified 08/13/16 16:31
Physical Exam
-
Exam:
Awake, alert, conversant.
No apparent distress.
Cranial nerves II through XII are grossly intact.
Face is symmetric
Tongue is midline
5/5 strength bilaterally in upper and lower extremities, with no evidence of pronator drift.
Sensation to light touch is intact in bilateral upper and lower extremities.
Examination of his lumbosacral spine demonstrates no obvious evidence of erythema, edema, or fluctuance within the subcutaneous tissues.
Head is normocephalic atraumatic
Neck is supple
Abdomen is soft
Regular rhythm
Warm extremity
Breathing nonlabored
MRI of the lumbar spine performed on 12/29/2023 at [facility] was reviewed. There is evidence of stable outpouchings extending from the dorsal, dorsal lateral aspect of the thecal sac at the L4-5, L5-S1 level, extending into the left S1
neuroforamen. These outpouchings appear to be loculated, and appear to be postsurgical in nature such as pseudomeningocele versus perineural cyst. No obvious evidence of CSFoma, is seen. Mild diffuse T2 signal abnormality is seen within the
subcutaneous tissues at L4-L5 which could be consistent with occult CSF leak versus procedural related signal change.
Noncontrast CT scan of the head performed 12/29/2023 did not demonstrate any obvious evidence of acute intracranial abnormality.
Problems
-
Problem Status Onset Code
Headache R51.9
Assessment / Plan
-
This is a 38-year-old gentleman with a history of chronic left lower extremity radiculopathy, intractable pain, who is status post left L5-S1 DRG stimulator trial, with removal of leads 2 days prior. He reports to me, that when the leads were
removed, there was significant extravasation of clear fluid. He was advised to monitor his symptoms for CSF leak. Upon his drive up from [place] to [place], he did have severe headache, which prompted him to proceed to the emergency room.
There thorough workup was done and evaluation by neurosurgery was performed, and he was advised to proceed with bed rest and conservative management. He presented to the emergency room yesterday with low-grade fevers, neck stiffness, and
meningismus. Therefore, LP was performed, which does demonstrate findings which may be consistent with meningitis given elevated white blood cell count, elevated proteins, and low glucose. Cultures are no growth to date.
At the present time, recommend modified bedrest with the patient being able to turn from [id number] for meals/comfort. Additionally, he can walk to the bathroom. Agree with empiric antibiotic treatment given CSF findings. It could be that his
symptoms of headache may be secondary to early meningitis. He does report that his symptoms of headache did improve on the evening of 12/28/2023, after discharge from [facility] emergency room, but then headaches returned yesterday. Can consider Diamox
500 mg BID if headaches are certainly positional in nature and persistent over the course of the next couple of days.
After careful review of the MRI scans performed on 12/29/2023, there is no obvious area of mack CSF extravasation/CSFoma. Would suggest, if needed, and if symptoms of positional headaches persist, epidural blood patch first.
Patient can go home per my specialty: No
[2023-12-30] MEDS: DECADRON 10 MG IV ×2 (14:39→20:49)
--- NOTE | 2023-12-30 20:00 | PTCARENOTE ---
Patient stated Headache resolved with Tylenol and would like wait for all stat meds( Benadryl/ Toradol/ Reglan)ordered at this time.
--- NOTE | 2023-12-30 20:17 | W.PN.HOSP.TC ---
Addendum entered and electronically signed by David Dukes MD 12/30/23 23:01:
Attending Addendum-
I saw and evaluated the patient. I reviewed the resident�s note and agree with findings and plan as documented in the resident�s note. Full 12 point ROS reviewed and negative except as documented Continues to occipital MACHADO. Worsened with sneezing.
Denies fevers chill. Complains of neck stiffness. Exam: Vitals reviewed in chart GEN-NAD HEENT- PEERLA, inability to touch chin to chest due to pain heart RRR lungs clear abd soft LE no edema Neuro AAO x3 neg Brudzinski neg Kernig MS 5/5 sensation
intact
Headache Neck pain and Fever
- no signs of CSF leak per NS after review of outside MRI
- Recent removal trial Spinal Stimulator at [facility]
- CSF studies reviewed- point towards bacterial cause, neg PCR, GS NGTD culture pending
- r/o bacterial meningitis
- will continue broad spectrum empiric abx Vanc/Cefepime + Decadron until all cultures neg
- Neuro on board
- ID on board
- NS on board
- bed rest elevate bed 30 degrees avoid increases in ICP
Leucocytosis
-increased from 12/28
-r/o infection check UA and blood cx x 2
-repeat CBC in am
Chronic low back pain
-hx L4-L5 Laminectomy
-plans for permanent stimulator with [facility] beginning of January
DVT PPx lovenox
FULL CODE
Time spent coordinating care, review of plan of care with resident, review of records, med rec, consults, notes, labs, rads, d/w nursing neuro NS and ID and parents � 65 mins
Original Note:
Today's Communication/Plan
-
Strict bedrest.
Continue antibiotics.
Decrease dexamethasone.
Assessment / Plan
Assessment / Plan
Assessment: Patient is a 38-year-old male with chronic low back pain and sciatica who presented to the ED with severe headache, fever, neck stiffness, chills S/p removal of spinal stimulator, and was admitted for further evaluation and management of
suspected meningitis.
Impression:
Possible bacterial vs septic meningitis
Plan:
Severe headache with neck stiffness and low-grade fever:
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
-Headache likely from a septic meningitis versus bacterial meningitis given sterile CSF tap PCR analysis. Other possible etiologies include dural leak secondary to dural tear.
-Continue antibiotics.
-Cultures pending.
-Bedrest per neurology.
-Consider LP if symptoms persists.
-May require blood patch.
-Decrease dexamethasone per neurology.
-Neurology following, appreciated.
-Neurosurgery consulted and following also appreciated.
-Infectious disease on board and appreciated
Chronic back pain:
-Continue pain management.
DVT prophylaxis:
-Enoxaparin.
Anticipated Discharge: > 48 hours
Subjective/Interval History
-
Date of Service: December 30, 2023
Patient is a 38-year-old male with past medical history of chronic back pain and sciatica s/p L4-L5 laminectomy 2016 who presented to the ED with severe headaches, photosensitivity, stiff neck, nausea and vomiting, fever and chills and elevated
pressure changes in his ears. Patient stated that his spinal stimulator was removed as [facility] 12/23/2023 and he developed headaches [address] home[address] Patient was evaluated at [facility] ED prior to presentation on the ED. Patient
was admitted for further evaluation and treatment of possible meningitis.
Objective Data
-
Vital Signs:
Vital Signs
Temp Pulse Resp BP Pulse Ox
100.8 F H 81 16 128/64 98
12/30/23 19:47 12/30/23 19:47 12/30/23 19:47 12/30/23 19:47 12/30/23 19:47
I&O
12/29/23 12/30/23 12/31/23
06:59 06:59 06:59
Intake Total 480 / 480 2340 / 2340
Output Total 400 / 400 1300 / 1300
Balance 80 / 80 1040 / 1040
Review of Systems
-
History Source: Patient
All other systems: Not reviewed unless documented
Constitutional: Reports No Symptoms; Denies Fever
EENT: Reports No Symptoms Reported; Denies Blurry Vision
Respiratory: Reports No Symptoms; Denies Trouble Breathing or Wheezing
Cardiac: Reports No Symptoms; Denies Chest Pain or Palpitations
Abdomen/GI: Reports No Symptoms; Denies Abdominal Pain, Nausea, Vomiting or Diarrhea
Genitourinary: Reports No Symptoms
Neuro: Reports Headache; Denies Weakness, Lightheadedness or Seizures
Endocrine: Reports No Symptoms
Physical Exam
-
General: Well Developed and No Apparent Distress
HEENT: Normocephalic, Atraumatic and Moist Mucous Membranes
Respiratory: Clear to Auscultation
Cardiac: Regular Rhythm and S1/S2; Negative Murmur, Rub or Gallop
GI: Soft, Nontender, Nondistended and Normal Bowel Sounds; Negative Organomegaly
Rectal: Deferred by Provider
Musculoskeletal: No Clubbing, No Cyanosis and No Edema
Skin: Warm; Negative Rash
Neuro: Awake, Alert, Oriented, AO x 3 and Other (Inability to perform chin to chest test)
Psych: Calm
Data Reviewed
-
CT Scan: Image personally visualized and interpreted, Report Reviewed by me and Discussed with Physician
Labs: Labs Reviewed by me and Discussed with Physician
[2023-12-31 00:45] LABS: Vancomycin Peak 19.9 ug/ml (18-26)
[2023-12-31] MEDS: DECADRON 10 MG IV ×2 (02:51→09:06)
[2023-12-31] MEDS: MAXIPIME 2000 MG IV ×3 (02:59→20:37)
[2023-12-31] MEDS: STERILE WATER FOR INJECTION 10 ML IV ×3 (02:59→20:37)
[2023-12-31 03:55] VITALS: BP 110/68
[2023-12-31 05:26] LABS: Urine Albumin Negative (Neg - Trace); Urine Bilirubin Negative (Negative); Urine Character Clear (Clear); Urine Color Yellow; Urine Glucose Negative (Negative); Urine Ketone Trace (Negative); Urine Leukocyte Negative (Negative); Urine Nitrite Negative (Negative); Urine Occult Blood Negative (Negative); Urine Urobilinogen Negative (Neg - 1+)
[2023-12-31] MEDS: VANCOCIN 200 IV (05:43)
[2023-12-31 07:50] VITALS: BP 115/70
[2023-12-31 08:17] LABS: % Basophils 0.1 % (0-2); % Immature Granulocytes 1.2 % (0-0.5); % Lymphocytes 4.6 % (20.5-51.1); % Monocytes 3.9 % (1.7-9.3); % Neutrophils 90.2 % (42.2-75.2); Absolute Immature Granulocytes 0.3 10^3/uL (0-0.05); Absolute Monocytes 0.9 10^3/uL (0.1-0.6); Absolute Neutrophils 19.7 10^3/uL (1.4-6.5); Hematocrit 36.1 % (39.0-52.0); Hemoglobin 12.5 g/dL (13.0-18.0); Mean Corp Hgb Conc. 34.6 g/dL (33.0-37.0); Mean Corpuscular Hgb 28.7 pg (27.0-31.0); Mean Platelet Volume 12.3 fL (7.4-10.4); Nucleated Red Blood Cells % 0 % (-); Platelet Count 248 10^3/uL (130-400); Red Blood Cell Count 4.35 10^6/uL (4.70-6.10); White Blood Cell Count 21.8 10^3/uL (4.8-10.8)
[2023-12-31 08:25] LABS: Vancomycin Trough 10.7 ug/ml (5-20)
[2023-12-31 08:53] LABS: Blood Urea Nitrogen 21 mg/dl (9-20); Calcium 9.4 mg/dl (8.4-10.2); Carbon Dioxide 20 mmol/L (22-30); Chloride 108 mmol/L (98-107); Estimated Creatinine Clearance > 125 ml/min; Glucose 128 mg/dl (70-99); Potassium 4.1 mmol/L (3.5-5.1); Sodium 141 mmol/L (135-145); eGFR > 60.00
--- NOTE | 2023-12-31 10:18 | PHA.VAN.FU ---
Vancomycin Assessment / Plan
- Assessment
Renal Function: Stable (0.8>0.8)
WBC's are: Trending Up (19>21.8)
In the past 24 hrs, patient has been: Febrile (Tmax 100.8 orally 12/30/23 at 19:47, currently afebrile)
Concomitant Antimicrobials: Cefepime
- Assessment - Therapeutic Drug Monitoring
Extrapolated Cmax (mcg/mL): 26
Peak level was drawn: Appropriately
Extrapolated Cmin (mcg/mL): 11
Trough Drawn: Appropriately
Calculated AUC (mcg*h/mL): 421
Calculated ke: 0.1167
Calculated half life (H): 6
Calculated Vd (L): 61
Calculated Vanc CL (ml/min): 119
- Dosing Plan
Adjust Regimen to: Vancomycin 1250mg IV Q8hrs starting at 14:00 today
New Regimen Predicts: AUC (574), Peak (34), Trough (16)
Dosing Comments: Contacted Dr Lopez (ID) who recommended targeting higher AUC for possible
HIM SPECIALIST infection
- Monitoring Plan
No level(s) ordered at this time: Will order levels according to vancomycin dosing protocol
- Follow Up
Pharmacy will continue to follow.
Vancomycin Follow UP
- -
Patient Age: 38
Patient Sex: Male
Vancomycin Day #: 2
Indication: Credentialer Infection
Requesting Provider: Dr Johnson
Pertinent Antimicrobial Allergies:
NKA
Height / Weight:
Height 6 ft
Actual Weight 82.191 kg
IBW in k.6
Adjusted BW in k.4
Pertinent Past Medical History: spinal stimulator removal at OSH 12/28
- Vital Signs / Lab Results
Temp Pulse Resp BP Pulse Ox
98.0 F 63 16 115/70 95
12/31/23 07:50 12/31/23 07:50 12/31/23 07:50 12/31/23 07:50 12/31/23 07:50
Lab Results - Hematology
12/29/23 12/30/23 12/31/23
18:45 04:28 05:30
WBC 17.7 H 19.0 H 21.8 H
Lab Results - Chemistry
12/29/23 12/30/23 12/31/23
18:45 04:28 05:30
BUN 13 15 21 H
Creatinine 0.9 0.8 0.8
Estimated Creat Clear > 125 > 125
Albumin 5.0
Lab Results - Urine
12/31/23
04:26
Urine Nitrite (Reflex) Negative
Leukocyte Esterase Rfl Negative
Microbiology Results
12/29/23 22:15 CSF Culture - Preliminary
Csf No Growth After 18-24 Hours
Gram Stain - Preliminary
12/29/23 22:14 Meningitis/Encephalitis Panel (PCR) - Final
Csf
Therapeutic Drug Monitoring
Vancomycin Peak 19.9 ug/ml (18-26) 12/31/23 00:11
Vancomycin Trough 10.7 ug/ml (5-20) 12/31/23 05:30
--- NOTE | 2023-12-31 10:39 | W.PN.ID1 ---
Date of Service
Date of Service: December 31, 2023
Today's Communication
Continue antibiotics for today.
Assessment / Plan
Meningitis
Fever
MACHADO
Recent removal of spinal stimulator with suspected CSF leak
Recommendations:
CSF PCR panel negative, although given history of recent spinal stimulator implantation, likely organisms would be different than usual meningitis etiologies, and would include Staph aureus, Propionibacterium and streptococci (which are not included
on current PCR pane).
DDx also includes aseptic meningitis.
Continue with empiric abx.
Await cultures.
Follow white count and temperature curve.
Follow for clinical improvement.
Neurosurgery input appriciated.
����������������������������������������������������������
Chief Complaint
-: Other (Meningitis)
Subjective / Review of Systems
Patient seen and examined. Reports improvement in headache. Denies fevers.
Vital Signs / Physical Exam
Vital Signs
Vital Signs
Temp Pulse Resp BP Pulse Ox
98.0 F 63 16 115/70 95
12/31/23 07:50 12/31/23 07:50 12/31/23 07:50 12/31/23 07:50 12/31/23 10:22
Physical Exam
Constitutional: No Acute Distress, Comfortable and Non-toxic
Eyes: Sclera Anicteric
Pulmonary: Clear and Non Labored
Gastrointestinal: Non Distended
Skin: Negative Rash or Jaundice
Neurological: Awake, Alert, Oriented and Meningeal Signs (Marked improvement in nuchal rigidity.)
Psychological: Calm
Objective Data
Lab Data
Lab Results
12/31/23 05:30
12/31/23 05:30
Estimated Creat Clear > 125 ml/min 12/31/23 05:30
Total Bilirubin 1.1 mg/dl (0.2-1.3) 12/29/23 18:45
AST 23 U/L (17-59) 12/29/23 18:45
ALT 16 U/L (0-50) 12/29/23 18:45
Alkaline Phosphatase 65 U/L (38-126) 12/29/23 18:45
Most recent labs reviewed.
Micro Results:
12/31/23 00:11 Blood Culture - Pending
Blood/Venous
12/30/23 23:26 Blood Culture - Pending
Blood/Venous
12/29/23 22:15 CSF Culture - Preliminary
Csf No Growth After 18-24 Hours
Gram Stain - Preliminary
12/29/23 22:15 Anaerobic Culture - Pending
Csf
12/29/23 22:14 Meningitis/Encephalitis Panel (PCR) - Final
Csf
Meningitis Panel, CSF by PCR Final 12/30/23-0016
Escherichia coli K1 Not Detected
Haemophilus influenzae Not Detected
Listeria monocytogenes Not Detected
Neisseria meningitidis Not Detected
Cytomegalovirus (CMV) Not Detected
Streptococcus agalactiae Not Detected
Streptococcus pneumoniae Not Detected
Enterovirus Not Detected
Herpes simplex virus 1 Not Detected
Herpes simplex virus 2 Not Detected
Human herpesvirus 6 Not Detected
Human parechovirus Not Detected
Varicella zoster virus Not Detected
C. neoformans/gattii Not Detected
Imaging:
12/29/2023 CT head without contrast: No evidence of acute intracranial abnormality. Film personally viewed.
--- NOTE | 2023-12-31 11:11 | W.PN.NEURO.1 ---
Today's Communication / Plan
-
Will reduce dexamethasone dosing from 10 mg every 6 hours to dosing of 8 mg every 6 hours and continue to lower until off at day 4 (currently day 2 of treatment)
Neuro Assessment/Plan
Assessment
IMPRESSIONS/RECOMMENDATIONS:
Abrupt onset headache and neck pain
With highly abnormal CSF and recent extraction of dorsal root ganglion spinal cord stimulator
Differential diagnosis currently includes presumed bacterial and aseptic meningitis
There is the possibility of a dural tear leading to the entirety of changes with the CSF suggested by MRI of the lumbar spine performed prior to this admission
Plan
Will reduce dexamethasone dosing from 10 mg every 6 hours to dosing of 8 mg every 6 hours and continue to lower until off at day 4 (currently day 2 of treatment)
Continue antibiotic coverage
Gradual advance patient from bedrest starting 01/01/2024 with consideration for lumbar puncture repeat in several days to determine if there is improvement in CSF findings or should the patient have a decline in function
DVT prophylaxis with enoxaparin
Will continue to follow patient. Thank you.
Subjective/Objective
Subjective Data
Date of Service: December 31, 2023
Improved mobility and reduced headache. Reduced photophobia, improved appetite.
Objective Data
Vital Signs
Temp Pulse Resp BP Pulse Ox
36.7 C 63 16 115/70 95
12/31/23 07:50 12/31/23 07:50 12/31/23 07:50 12/31/23 07:50 12/31/23 10:22
Lab Results
12/31/23 05:30
12/31/23 05:30
Sodium 141 mmol/L (135-145) 12/31/23 05:30
Potassium 4.1 mmol/L (3.5-5.1) 12/31/23 05:30
BUN 21 mg/dl (9-20) H 12/31/23 05:30
Glucose 128 mg/dl (70-99) H 12/31/23 05:30
Calcium 9.4 mg/dl (8.4-10.2) 12/31/23 05:30
Patient Allergies
No Known Allergies Allergy (Unverified 08/13/16 16:31)
Review of Systems
-
History Source: Patient
All other systems: Reviewed and negative
EENT: Negative Decreased Vision or Swallowing Difficulty
Respiratory: Negative Trouble Breathing
Cardiac: Negative Chest Pain
Abdomen/GI: Negative Incontinence of Stool
Genitourinary: Negative Incontinence
Musculoskeletal: Negative Back Pain or Neck Pain
Neuro: Headache (0/10); Negative Dizzy
Physical Exam
-
General: No Apparent Distress and Appears Stated Age
Eyes: Round OU, [place] Conjunctivae and No Ptosis
HEENT: Anicteric and Moist Mucous Membranes
Neck: Full Range of Motion
Respiratory: No Dyspnea
Cardiac: No JVD
GI: Soft
Skin: Unremarkable
Extremities: No Clubbing, No Cyanosis and No Edema
Psych: Intact Judgement/Insight
Extended Neurological Exam
Mood & Affect: Mood Unremarkable and Affect Unremarkable
Attention Span & Concentration: Awake, Alert and Interactive
Memory: Unremarkable
Tremor: Hand Tremor Absent and Head Tremor Absent
Speech: Quality Unremarkable and Quantity Unremarkable
Cranial Nerve II: Left Eye: Pupillary Size Unremarkable and Visual Rasmussen Grossly Intact
Cranial Nerve II: Right Eye: Pupillary Size Unremarkable and Visual R[place]ussen Grossly Intact
Cranial Nerves III, IV, : Extraocular Movement: Grossly Intact
Cranial Nerve VII: Facial Symmetry: Normal Facial Symmetry
Cranial Nerve VIII: Hearing: Unremarkable Hearing to Normal Conversational Volume
Cranial Nerve XI: Shoulder Shrug: Unremarkable
Cranial Nerve XII: Tongue Protusion: Midline
Muscle Strength, Overall: Other (Full in bilateral lower extremities)
Muscle Bulk & Tone: Bulk Unremarkable and Tone Unremarkable
Gait & Station: Unable to Assess
Data Reviewed
-
Labs: Report Reviewed
Reviewed with: Physician and Patient
Old Records: Summarized
Past History
Past History
ED Past Medical History: Other (spinal meningitis )
ED Past Surgical History: Orthopedic (L4-5 hemilaminectomy 2016) and Other (spinal cord stimulator inserted and removed)
Social History
Tobacco: Non-smoker
Alcohol: None
Drug: None
Employment: Employed
Family History
Family History: Other (reviewed and non-contributory)
Medications
-
Medications:
Generic Name Dose Route Start Last Admin
Trade Name Freq PRN Reason Stop Dose Admin
Acetaminophen 650 mg 12/30/23 00:35 12/30/23 18:13
Acetaminophen 325 Mg Tablet PO 01/27/24 00:34 650 mg
Q4HPRN PRN Administration
mild pain/MACHADO/temp> 100.4F
Bisacodyl 10 mg 12/30/23 00:35
Bisacodyl 10 Mg Rectal Suppository RECTAL 01/27/24 00:34
V08QNRI PRN
constipation
Cefepime HCl 2,000 mg 12/30/23 04:00 12/31/23 02:59
Cefepime Hcl 2,000 Mg/12.5 Ml Vial IV 2,000 mg
Q8H NAVIN Administration
Dexamethasone Sodium Phosphate 10 mg 12/30/23 14:00 12/31/23 09:06
Dexamethasone 4 Mg/Ml 1 Ml Vial IV 01/27/24 13:59 10 mg
Q6H NAVIN Administration
Enoxaparin Sodium 40 mg 12/30/23 18:00 12/30/23 17:43
Enoxaparin Sodium 40 Mg/0.4 Ml Syringe SC 01/27/24 17:59 Not Given
QPM NAVIN
Vancomycin HCl 1,250 mg/ 275 mls @ 183.33 mls/hr 12/31/23 14:00
Sodium Chloride IV
Q8H NAVIN
Protocol
Polyethylene Glycol 17 grams 12/30/23 00:35
Polyethylene Glycol Powder 17 Grams Packet PO 01/27/24 00:34
DAILYPRN PRN
constipation
Senna/Docusate Sodium 1 tablet 12/30/23 00:35
Docusate W/Senna (Angie-Colace) Tablet PO 01/27/24 00:34
BIDPRN PRN
constipation
Sodium Chloride 0 flush 12/29/23 23:00
Sodium Chloride 0.9% (Flush) Syringe IV 01/26/24 22:59
PER PROTOCOL NAVIN
Sterile Water 10 ml 12/30/23 04:00 12/31/23 02:59
Sterile Water For Injection 10 Ml Vial IV 01/27/24 03:59 10 ml
Q8H NAVIN Administration
[2023-12-31 11:45] VITALS: BP 133/74
--- NOTE | 2023-12-31 13:42 | W.PN.HOSP.TC ---
Today's Communication/Plan
-
IV AB
Assessment / Plan
Assessment / Plan
Assessment: Patient is a 38-year-old male with chronic low back pain and sciatica who presented to the ED with severe headache, fever, neck stiffness, chills S/p removal of spinal stimulator, implantation and removal at [facility]. 2 hours into
his travel back he felt a headache and was seen at [place]. Patient had an MRI of his lumbar spine and a CT of his head which was okay. Patient felt better and was discharged home. He woke up the next morning with severe headache which prompted him
to come to the emergency room. He also had a fever. And was admitted for further evaluation and management of suspected meningitis.
On examination comfortable, awake alert conversant
Cardiovascular stress test appreciated
Chest clear to auscultation next abdomen soft nontender
Lumbar [id number]-no discharge or collection no redness
Neuroexam is nonfocal
#Possible bacterial vs aseptic meningitis
Fluid studies consistent with likely meningitis slightly low sugar, elevated protein PCR negative
Per discussion with infectious disease patient may have different back restraints given instrumentation
With instrumentation is high risk for infection
Agree with antibiotics-vancomycin and cefepime
Also on steroids to treat aseptic meningitis
Hopefully dose of steroids can be reduced soon.
Headaches have improved, patient is able to ambulate
Possibly dural tear is healing. May not need a blood patc
Continue antibiotics. May need to complete a course for bacterial meningitis
Cultures pending.
Neurology, neurosurgery infectious disease consultations appreciated
#Chronic back pain:
Spinal stimulator did give him pain relief
-L4-5 laminectomy in the past
-Continue pain management.
#DVT prophylaxis:
-Enoxaparin.
# Full code
Discussed with infectious disease
Discussed with patient's parents at bedside
Anticipated Discharge: > 48 hours
Subjective/Interval History
-
Date of Service: December 31, 2023
Objective Data
-
Labs:
Laboratory Results
12/31/23
05:30
WBC 21.8 H
Hgb 12.5 L
Hct 36.1 L
Plt Count 248
Sodium 141
Potassium 4.1
Chloride 108 H
Carbon Dioxide 20 L
BUN 21 H
Creatinine 0.8
Glucose 128 H
Calcium 9.4
Vital Signs:
Vital Signs
Temp Pulse Resp BP Pulse Ox
98.5 F 72 14 133/74 98
12/31/23 11:45 12/31/23 11:45 12/31/23 11:45 12/31/23 11:45 12/31/23 11:45
I&O
12/30/23 12/31/23 01/01/24
06:59 06:59 06:59
Intake Total 480 / 480 3220 / 3220
Output Total 400 / 400 1850 / 1850
Balance 80 / 80 1370 / 1370
[2023-12-31] MEDS: DECADRON 8 MG IV ×2 (15:10→20:37)
[2023-12-31] MEDS: VANCOCIN 275 MG IV ×2 (15:10→21:31)
[2023-12-31 15:36] VITALS: BP 128/63
--- NOTE | 2023-12-31 17:05 | PTCARENOTE ---
pt refusing SQ lovenox shot. nurse educating on why it is ordered and the preventative measures as to why it is given. pt understanding and still politely declining. pt given ok to shower orders per MD. pt to shower tomorrow wants to rest today
[2023-12-31 23:18] VITALS: BP 131/81
[2024-01-01] MEDS: DECADRON 8 MG IV ×2 (01:04→08:04)
[2024-01-01] MEDS: VANCOCIN 275 MG IV ×3 (05:01→21:03)
[2024-01-01] MEDS: MAXIPIME 2000 MG IV ×3 (05:01→20:50)
[2024-01-01] MEDS: STERILE WATER FOR INJECTION 10 ML IV ×3 (05:01→20:50)
[2024-01-01 08:00] VITALS: BP 129/70
[2024-01-01 09:19] LABS: Hematocrit 38.6 % (39.0-52.0); Mean Corp Hgb Conc. 33.7 g/dL (33.0-37.0); Mean Corpuscular Hgb 28.8 pg (27.0-31.0); Mean Corpuscular Volume 85.6 fL (80.0-94.0); Mean Platelet Volume 12.2 fL (7.4-10.4); Platelet Count 268 10^3/uL (130-400); Red Blood Cell Count 4.51 10^6/uL (4.70-6.10); Red Cell Dist. Width 13.2 % (11.5-14.5); White Blood Cell Count 17.9 10^3/uL (4.8-10.8)
[2024-01-01 09:46] LABS: Blood Urea Nitrogen 21 mg/dl (9-20); Calcium 9.4 mg/dl (8.4-10.2); Carbon Dioxide 24 mmol/L (22-30); Chloride 106 mmol/L (98-107); Estimated Creatinine Clearance > 125 ml/min; Glucose 121 mg/dl (70-99); Potassium 4.3 mmol/L (3.5-5.1); Sodium 138 mmol/L (135-145); eGFR > 60.00
--- NOTE | 2024-01-01 10:39 | W.PN.HOSP.TC ---
Today's Communication/Plan
-
AB
? Wean steroids
Assessment / Plan
Assessment / Plan
Assessment: Patient is a 38-year-old male with chronic low back pain and sciatica who presented to the ED with severe headache, fever, neck stiffness, chills S/p removal of spinal stimulator, implantation and removal at [facility]. 2 hours into
his travel back he felt a headache and was seen at [place]. Patient had an MRI of his lumbar spine and a CT of his head which was okay. Patient felt better and was discharged home. He woke up the next morning with severe headache which prompted him
to come to the emergency room. He also had a fever. And was admitted for further evaluation and management of suspected meningitis.
On examination comfortable, awake alert conversant
Cardiovascular stress test appreciated
Chest clear to auscultation next abdomen soft nontender
Lumbar [id number]-no discharge or collection no redness
Neuroexam is nonfocal
#Possible bacterial vs aseptic meningitis
Fluid studies consistent with likely meningitis slightly low sugar, elevated protein PCR negative
Per discussion with infectious disease patient may have different bacterial strains given instrumentation
With instrumentation is high risk for infection
On vancomycin and cefepime
Also on steroids to treat aseptic meningitis.Hopefully dose of steroids can be reduced soon.
Headaches have improved, patient is able to ambulate
Possibly dural tear is healing. May not need a blood patch
Continue antibiotics. May need to complete a course for bacterial meningitis
Cultures pending.
Neurology, neurosurgery infectious disease consultations appreciated
#Chronic back pain:
Spinal stimulator did give him pain relief
-L4-5 laminectomy in the past- in [place]. 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
-Continue pain management.
#Hyperglycemia from steroids
#DVT prophylaxis:
-Enoxaparin.
# Full code
Discussed with infectious disease
Anticipated Discharge: > 48 hours
Subjective/Interval History
-
Date of Service: January 01, 2024
Objective Data
-
Labs:
Laboratory Results
01/01/24
08:08
WBC 17.9 H
Hgb 13.0
Hct 38.6 L
Plt Count 268
Sodium 138
Potassium 4.3
Chloride 106
Carbon Dioxide 24
BUN 21 H
Creatinine 0.7
Glucose 121 H
Calcium 9.4
Vital Signs:
Vital Signs
Temp Pulse Resp BP Pulse Ox
98.1 F 57 16 129/70 95
01/01/24 08:00 01/01/24 08:00 01/01/24 08:00 01/01/24 08:00 01/01/24 08:00
I&O
12/31/23 01/01/24 01/02/24
06:59 06:59 06:59
Intake Total 3220 / 3220 1690 / 1690
Output Total 1850 / 1850
Balance 1370 / 1370 1690 / 1690
--- NOTE | 2024-01-01 12:36 | W.PN.NEURO.1 ---
Today's Communication / Plan
-
Will reduce dexamethasone dosing from 8 mg every 6 hours to dosing of 6 mg every 6 hours and continue to lower until off at day 4 (currently day 3 of treatment)
Continue antibiotic coverage
Gradual advance patient from bedrest starting 01/01/2024 with consideration for lumbar puncture repeat in several days to determine if there is improvement in CSF findings or should the patient have a decline in function
Neuro Assessment/Plan
Assessment
IMPRESSIONS/RECOMMENDATIONS:
Abrupt onset headache and neck pain
With highly abnormal CSF and recent extraction of dorsal root ganglion spinal cord stimulator
Differential diagnosis currently includes presumed bacterial and aseptic meningitis
There is the possibility of a dural tear leading to the entirety of changes with the CSF suggested by MRI of the lumbar spine performed prior to this admission
Plan
Will reduce dexamethasone dosing from 8 mg every 6 hours to dosing of 6 mg every 6 hours and continue to lower until off at day 4 (currently day 3 of treatment)
Continue antibiotic coverage
Gradual advance patient from bedrest starting 01/01/2024 with consideration for lumbar puncture repeat in several days to determine if there is improvement in CSF findings or should the patient have a decline in function
DVT prophylaxis with enoxaparin
Will continue to follow patient. Thank you.
Subjective/Objective
Subjective Data
Date of Service: January 01, 2024
Improved stiffness and pain in neck.
No headache.
Objective Data
Vital Signs
Temp Pulse Resp BP Pulse Ox
36.7 C 57 16 129/70 95
01/01/24 08:00 01/01/24 08:00 01/01/24 08:00 01/01/24 08:00 01/01/24 08:00
Lab Results
01/01/24 08:08
01/01/24 08:08
Sodium 138 mmol/L (135-145) 01/01/24 08:08
Potassium 4.3 mmol/L (3.5-5.1) 01/01/24 08:08
BUN 21 mg/dl (9-20) H 01/01/24 08:08
Glucose 121 mg/dl (70-99) H 01/01/24 08:08
Calcium 9.4 mg/dl (8.4-10.2) 01/01/24 08:08
Patient Allergies
No Known Allergies Allergy (Unverified 08/13/16 16:31)
Review of Systems
-
History Source: Patient
All other systems: Reviewed and negative
Abdomen/GI: Negative Incontinence of Stool
Genitourinary: Negative Incontinence
--- NOTE | 2024-01-01 12:37 | PHA.VAN.FU ---
Vancomycin Assessment / Plan
- Assessment
Renal Function: SCR Decreasing (0.8>0.7)
WBC's are: Trending Down (21.8>17.9)
In the past 24 hrs, patient has been: Afebrile
Concomitant Antimicrobials: Cefepime
- Dosing Plan
Continue: Vancomycin 1250mg IV Q8hrs
- Monitoring Plan
Peak Level: Ordered for 01/02/24 at 01:00
Trough Level: Ordered for 01/02/24 at 05:30
- Follow Up
Pharmacy will continue to follow.
Vancomycin Follow UP
- -
Patient Age: 38
Patient Sex: Male
Vancomycin Day #: 3
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
Requesting Provider: Dr Johnson
Pertinent Antimicrobial Allergies:
NKA
Height / Weight:
Height 6 ft
Actual Weight 82.191 kg
IBW in k.6
Adjusted BW in k.4
Pertinent Past Medical History: spinal stimulator removal at [facility] 12/28
- Vital Signs / Lab Results
Temp Pulse Resp BP Pulse Ox
98.1 F 57 16 129/70 95
01/01/24 08:00 01/01/24 08:00 01/01/24 08:00 01/01/24 08:00 01/01/24 08:00
Lab Results - Hematology
12/29/23 12/30/23 12/31/23
18:45 04:28 05:30
WBC 17.7 H 19.0 H 21.8 H
01/01/24
08:08
WBC 17.9 H
Lab Results - Chemistry
12/29/23 12/30/23 12/31/23
18:45 04:28 05:30
BUN 13 15 21 H
Creatinine 0.9 0.8 0.8
Estimated Creat Clear > 125 > 125
Albumin 5.0
01/01/24
08:08
BUN 21 H
Creatinine 0.7
Estimated Creat Clear > 125
Albumin
Microbiology Results
12/29/23 22:15 CSF Culture - Preliminary
Csf No Growth After 72 Hours
Gram Stain - Preliminary
12/31/23 00:11 Blood Culture - Preliminary
Blood/Venous No Growth in 24 hours- Final report to follow
12/30/23 23:26 Blood Culture - Preliminary
Blood/Venous No Growth in 24 hours- Final report to follow
12/29/23 22:15 Anaerobic Culture - Preliminary
Csf Culture pending. Anaerobic cultures are examined after 3
days incubation. Additional information to follow.
Therapeutic Drug Monitoring
Vancomycin Peak 19.9 ug/ml (18-26) 12/31/23 00:11
Vancomycin Trough 10.7 ug/ml (5-20) 12/31/23 05:30
[2024-01-01] MEDS: DECADRON 6 MG IV ×2 (14:19→20:49)
--- NOTE | 2024-01-01 14:27 | W.PN.ID1 ---
Date of Service
Date of Service: January 01, 2024
Today's Communication
Continue antibiotics.
Assessment / Plan
Meningitis
Fever
MACHADO
Recent removal of spinal stimulator with suspected CSF leak
Recommendations:
CSF PCR panel negative, although given history of recent spinal stimulator implantation, likely organisms would be different than usual meningitis etiologies, and would include Staph aureus, Propionibacterium and streptococci (which are not included
on current PCR pane).
DDx also includes aseptic meningitis (i.e. inflammatory meningitis)
Continue with empiric abx.
Await cultures.
Follow white count and temperature curve.
Follow for clinical improvement.
Will await call from physician at [facility].
����������������������������������������������������������
Chief Complaint
-: Other (Meningitis)
Subjective / Review of Systems
Patient seen and examined. Reports feeling improved, with decreased headache, decreased neck stiffness.
Review of Systems: No Fever
Vital Signs / Physical Exam
Vital Signs
Vital Signs
Temp Pulse Resp BP Pulse Ox
98.1 F 57 16 129/70 95
01/01/24 08:00 01/01/24 08:00 01/01/24 08:00 01/01/24 08:00 01/01/24 08:00
Physical Exam
Physical Exam:
Constitutional: No Acute Distress, Comfortable and Non-toxic
Eyes: Sclera Anicteric
Pulmonary: Clear and Non Labored
Gastrointestinal: Non Distended
Skin: Negative Rash or Jaundice
Neurological: Awake, Alert, Oriented and Meningeal Signs (continued improvement in nuchal rigidity.)
Psychological: Calm
Objective Data
Lab Data
Lab Results
01/01/24 08:08
01/01/24 08:08
Estimated Creat Clear > 125 ml/min 01/01/24 08:08
Total Bilirubin 1.1 mg/dl (0.2-1.3) 12/29/23 18:45
AST 23 U/L (17-59) 12/29/23 18:45
ALT 16 U/L (0-50) 12/29/23 18:45
Alkaline Phosphatase 65 U/L (38-126) 12/29/23 18:45
Most recent labs reviewed.
Micro Results:
12/29/23 22:15 CSF Culture - Preliminary
Csf No Growth After 72 Hours
Gram Stain - Preliminary
12/31/23 00:11 Blood Culture - Preliminary
Blood/Venous No Growth in 24 hours- Final report to follow
12/30/23 23:26 Blood Culture - Preliminary
Blood/Venous No Growth in 24 hours- Final report to follow
12/29/23 22:15 Anaerobic Culture - Preliminary
Csf Culture pending. Anaerobic cultures are examined after 3
days incubation. Additional information to follow.
12/29/23 22:14 Meningitis/Encephalitis Panel (PCR) - Final
Csf
Meningitis Panel, CSF by PCR Final 12/30/23-0016
Escherichia coli K1 Not Detected
Haemophilus influenzae Not Detected
Listeria monocytogenes Not Detected
Neisseria meningitidis Not Detected
Cytomegalovirus (CMV) Not Detected
Streptococcus agalactiae Not Detected
Streptococcus pneumoniae Not Detected
Enterovirus Not Detected
Herpes simplex virus 1 Not Detected
Herpes simplex virus 2 Not Detected
Human herpesvirus 6 Not Detected
Human parechovirus Not Detected
Varicella zoster virus Not Detected
C. neoformans/gattii Not Detected
Imaging:
12/29/2023 CT head without contrast: No evidence of acute intracranial abnormality. Film personally viewed.
[2024-01-01 16:40] VITALS: BP 130/70
[2024-01-01 23:37] VITALS: BP 133/73
[2024-01-02] MEDS: DECADRON 6 MG IV ×3 (01:02→16:30)
[2024-01-02 01:44] LABS: Vancomycin Peak 23.9 ug/ml (18-26)
[2024-01-02] MEDS: STERILE WATER FOR INJECTION 10 ML IV ×2 (04:56→11:41)
[2024-01-02] MEDS: MAXIPIME 2000 MG IV ×2 (04:56→11:40)
[2024-01-02] MEDS: VANCOCIN 275 MG IV ×3 (05:42→22:38)
[2024-01-02 07:25] LABS: Hematocrit 38.3 % (39.0-52.0); Hemoglobin 13.2 g/dL (13.0-18.0); Mean Corp Hgb Conc. 34.5 g/dL (33.0-37.0); Mean Corpuscular Hgb 28.5 pg (27.0-31.0); Mean Corpuscular Volume 82.7 fL (80.0-94.0); Mean Platelet Volume 12.1 fL (7.4-10.4); Platelet Count 300 10^3/uL (130-400); Red Blood Cell Count 4.63 10^6/uL (4.70-6.10); White Blood Cell Count 12.7 10^3/uL (4.8-10.8)
[2024-01-02 07:29] LABS: Vancomycin Trough 14.2 ug/ml (5-20)
[2024-01-02 07:50] LABS: Blood Urea Nitrogen 23 mg/dl (9-20); Calcium 9.6 mg/dl (8.4-10.2); Carbon Dioxide 21 mmol/L (22-30); Chloride 105 mmol/L (98-107); Estimated Creatinine Clearance > 125 ml/min; Glucose 126 mg/dl (70-99); Potassium 4.4 mmol/L (3.5-5.1); Sodium 138 mmol/L (135-145); eGFR > 60.00
[2024-01-02 08:00] VITALS: BP 131/70
--- NOTE | 2024-01-02 09:07 | PHA.VAN.FU ---
Vancomycin Assessment / Plan
- Assessment
Renal Function: Stable
WBC's are: Trending Down
In the past 24 hrs, patient has been: Afebrile
Concomitant Antimicrobials: cefepime
- Assessment - Therapeutic Drug Monitoring
Extrapolated Cmax (mcg/mL): 32.7
Peak level was drawn: Appropriately (drawn ~2.7H after end of previous infusion)
Extrapolated Cmin (mcg/mL): 15.3
Trough Drawn: Appropriately
Levels were drawn: At steady state (levels drawn after 5th dose of new regimen)
Calculated AUC (mcg*h/mL): 555
Calculated ke: 0.117
Calculated half life (H): 5.9
Calculated Vd (L): 58 (~0.7 L/kg)
Calculated Vanc CL (ml/min): 112
- Dosing Plan
Continue: Vanc 1250mg Q8H
Dosing Comments: continue present dosing given PATIENT ACCESS MANAGER indication
- Monitoring Plan
No level(s) ordered at this time: consider repeat levels later this week to assess for accumulation
- Follow Up
Pharmacy will continue to follow.
Vancomycin Follow UP
- -
Patient Age: 38
Patient Sex: Male
Vancomycin Day #: 4
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
Requesting Provider: Dr Johnson
Pertinent Antimicrobial Allergies:
NKDA
Height / Weight:
Height 6 ft
Actual Weight 82.191 kg
IBW in k.6
Adjusted BW in k.4
Pertinent Past Medical History: spinal stimulator removal at [facility] 12/28
- Vital Signs / Lab Results
Temp Pulse Resp BP Pulse Ox
98.6 F 52 16 131/70 97
01/02/24 08:00 01/02/24 08:00 01/02/24 08:00 01/02/24 08:00 01/02/24 08:00
Lab Results - Hematology
12/31/23 01/01/24 01/02/24
05:30 08:08 05:41
WBC 21.8 H 17.9 H 12.7 H
Lab Results - Chemistry
12/31/23 01/01/24 01/02/24
05:30 08:08 05:41
BUN 21 H 21 H 23 H
Creatinine 0.8 0.7 0.7
Estimated Creat Clear > 125 > 125 > 125
Microbiology Results
12/31/23 00:11 Blood Culture - Preliminary
Blood/Venous No Growth in 48 hours- Final report to follow
12/30/23 23:26 Blood Culture - Preliminary
Blood/Venous No Growth in 48 hours- Final report to follow
12/29/23 22:15 CSF Culture - Preliminary
Csf No Growth After 72 Hours
Gram Stain - Preliminary
12/29/23 22:15 Anaerobic Culture - Preliminary
Csf Culture pending. Anaerobic cultures are examined after 3
days incubation. Additional information to follow.
Therapeutic Drug Monitoring
Vancomycin Peak 23.9 ug/ml (18-26) 01/02/24 01:14
Vancomycin Trough 14.2 ug/ml (5-20) 01/02/24 05:41
--- NOTE | 2024-01-02 09:13 | W.PN.NEURO.1 ---
Addendum entered and electronically signed by Ulises Mclean MD 01/02/24 12:31:
I saw and evaluate the patient I reviewed the note by Loulou Mary agree with the findings following comments:
38-year-old man with chronic sciatic pain who had trial of spinal cord stimulator with subsequent removal in early December. After this he had a lot of clear fluid and developed positional significant headache 1 to 2 days afterwards and then presented
to our ER with signs concerning for meningitis with nuchal rigidity mild fever headache and photophobia he was started on antibiotics and steroids earlier and had lumbar puncture.
He had had a previous spinal cord stimulator and thoracic spine and also had a lumbar spine surgery a few years ago. He struggles with significant pain which is especially worse with standing.
Neurologic examination is unremarkable appears well, normal cranial nerves motor function and good mental status
Lumbar puncture showed highly abnormal 6000 white blood cells was sent to chromium elevated protein to 407 cultures so far been negative bio Stylechi meningitis panel was negative
Assessment: Based on the history and previous imaging highly suggestive of a CSF leak related to spinal cord stimulator placement and removal bacterial meningitis does seem most likely. He is improving. Complicated picture of whether or not he
would eventually require any type of procedure whether blood patch or surgical treatment of CSF leak.
Recommendations
-Anticipate he will likely need a few weeks of IV antibiotics, ID following and appreciate their input
-I would plan for monitoring him clinically for signs of CSF leak which would be a positional headache worse with standing
-Tentatively would consider reimaging of MRI of the lumbar spine and brain after finishing antibiotic treatment and use this along with his clinical picture to make an assessment of whether or not there is still persistent CSF leak. If imaging or
clinical history suggest still some persistent CSF leak then blood patch would most likely be the best first management before pursuing anything like a myelogram which is invasive
-Contacting the neurosurgery team at [facility] and I gave him some contacts for neurosurgeons in the [place] in [facility] areas
-Continue on antibiotics and IV steroids
-Follow fever curve, white blood cell count and clinically as well as cultures
-No further eurologic imaging felt necessary at this point in time
Original Note:
Today's Communication / Plan
-
.
Neuro Assessment/Plan
Assessment
IMPRESSIONS/RECOMMENDATIONS:
Abrupt onset headache and neck pain
With highly abnormal CSF and recent extraction of dorsal root ganglion spinal cord stimulator
Differential diagnosis currently includes presumed bacterial and aseptic meningitis
There is the possibility of a dural tear leading to the entirety of changes with the CSF suggested by MRI of the lumbar spine performed prior to this admission
Plan
-Dexamethasone course completed today at 1600 (day 4).
-Continue antibiotic coverage per ID. Consideration for PICC line placement today given multiple IV infiltrates, if bed bug exterminator antibiotics are indicated.
-Consideration for lumbar puncture repeat in several days to determine if there is improvement in CSF findings or should the patient have a decline in function.
-PT/OT evaluations, OOB as tolerated.
-DVT prophylaxis with enoxaparin.
-Patient instructed to update his Neurosurgeon at [facility] with recent events.
Will continue to follow patient.
Subjective/Objective
Subjective Data
Date of Service: January 02, 2024
No acute events overnight. Patient reports feeling significantly improved today. His headache, stiff neck, and neck pain have resolved. He denies any dizziness, vision changes, photo/phonophobia, nausea, speech/swallow difficulty, weakness, chest
pain, palpitations, and shortness of breath.
Objective Data
Vital Signs
Temp Pulse Resp BP Pulse Ox
98.6 F 52 16 131/70 97
01/02/24 08:00 01/02/24 08:00 01/02/24 08:00 01/02/24 08:00 01/02/24 08:00
Lab Results
01/02/24 05:41
01/02/24 05:41
Sodium 138 mmol/L (135-145) 01/02/24 05:41
Potassium 4.4 mmol/L (3.5-5.1) 01/02/24 05:41
BUN 23 mg/dl (9-20) H 01/02/24 05:41
Glucose 126 mg/dl (70-99) H 01/02/24 05:41
Calcium 9.6 mg/dl (8.4-10.2) 01/02/24 05:41
Patient Allergies
No Known Allergies Allergy (Unverified 08/13/16 16:31)
Review of Systems
-
History Source: Patient
EENT: Negative Blurry Vision, Decreased Vision or Swallowing Difficulty
Respiratory: Negative Cough or Trouble Breathing
Cardiac: Negative Chest Pain or Palpitations
Abdomen/GI: Negative Nausea
Genitourinary: Negative Difficulty Voiding
Musculoskeletal: Other (LLE sciatica with sitting)
Neuro: Numbness (LLE with sitting); Negative Dizzy, Headache, Weakness, Tremors or Speech Problem
Physical Exam
-
General: Well Developed, Well Nourished and No Apparent Distress
Eyes: No Ptosis and PERRLA
HEENT: Normocephalic and Atraumatic
Neck: Full Range of Motion
Respiratory: No Dyspnea
GI: Non-distended
Extremities: No Clubbing, No Cyanosis and No Edema
Psych: Unremarkable
Extended Neurological Exam
Mood & Affect: Mood Unremarkable and Affect Unremarkable
Attention Span & Concentration: Awake, Alert, Interactive and No Difficulty with 2 Step Request
Memory: Unremarkable and Able to Recall
Tremor: Hand Tremor Absent and Head Tremor Absent
Involuntary Movement: None
Speech: Quality Unremarkable, Quantity Unremarkable and Rate of Production Unremarkable
Cranial Nerve II: Left Eye: Pupillary Reactivity Unremarkable, Pupillary Size Unremarkable and Visual Rasmussen Intact
Cranial Nerve II: Right Eye: Pupillary Reactivity Unremarkable, Pupillary Size Unremarkable and Visual Rasmussen Intact
Cranial Nerves III, IV, : Extraocular Movement: Extraocular Movement Full in all Directions
Cranial Nerve V: Facial Sensation: Intact to Light Touch
Cranial Nerve VII: Facial Symmetry: Normal Facial Symmetry
Cranial Nerve VIII: Hearing: Unremarkable Hearing to Normal Conversational Volume
Cranial Nerves IX, X: Palate Movement: Palate Elevation Symmetric
Cranial Nerve XI: Shoulder Shrug: Unremarkable
Cranial Nerve XII: Tongue Protusion: Midline
Muscle Strength, Overall: Reduced on Left (LLE 5-/5)
Muscle Bulk & Tone: Bulk Unremarkable and Tone Unremarkable
Pronator Drift: No Drift in Upper Extremities and No Drift in Lower Extremities
Deep Tendon Reflexes: Unremarkable Throughout
Cold Sensation: Unremarkable
Vibration Sensation: Unremarkable
Touch Sensation: Unremarkable
Coordination: [id number]-[id number] Testing Unremarkable
Babinski Sign: Absent Bilaterally
Data Reviewed
-
CT Head: Report Reviewed and Image Reviewed
Medical Test Reports: Report Reviewed (CT myelogram, CT lumbar spine, CSF)
Labs: Report Reviewed
Reviewed with: Physician and Patient
Medications
-
Active Medications
Generic Name Dose Route Start Last Admin
Trade Name Freq PRN Reason Stop Dose Admin
Acetaminophen 650 mg 12/30/23 00:35 12/30/23 18:13
Acetaminophen 325 Mg Tablet PO 01/27/24 00:34 650 mg
Q4HPRN PRN Administration
mild pain/MACHADO/temp> 100.4F
Bisacodyl 10 mg 12/30/23 00:35
Bisacodyl 10 Mg Rectal Suppository RECTAL 01/27/24 00:34
[id number] PRN
constipation
Cefepime HCl 2,000 mg 12/30/23 04:00 01/02/24 11:40
Cefepime Hcl 2,000 Mg/12.5 Ml Vial IV 2,000 mg
Q8H NAVIN Administration
Dexamethasone Sodium Phosphate 6 mg 01/02/24 16:00
Dexamethasone 4 Mg/Ml 1 Ml Vial IV 01/30/24 15:59
Q8H NAVIN
Enoxaparin Sodium 40 mg 12/30/23 18:00 01/01/24 17:28
Enoxaparin Sodium 40 Mg/0.4 Ml Syringe SC 01/27/24 17:59 Not Given
QPM NAVIN
Vancomycin HCl 1,250 mg/ 275 mls @ 183.33 mls/hr 12/31/23 14:00 01/02/24 05:42
Sodium Chloride IV 275 mls
Q8H NAVIN Administration
Protocol
Polyethylene Glycol 17 grams 12/30/23 00:35
Polyethylene Glycol Powder 17 Grams Packet PO 01/27/24 00:34
DAILYPRN PRN
constipation
Senna/Docusate Sodium 1 tablet 12/30/23 00:35
Docusate W/Senna (Angie-Colace) Tablet PO 01/27/24 00:34
BIDPRN PRN
constipation
Sodium Chloride 0 flush 12/29/23 23:00
Sodium Chloride 0.9% (Flush) Syringe IV 01/26/24 22:59
PER PROTOCOL NAVIN
Sterile Water 10 ml 12/30/23 04:00 01/02/24 11:41
Sterile Water For Injection 10 Ml Vial IV 01/27/24 03:59 10 ml
Q8H NAVIN Administration
Home Medications
�Medication �Instructions �Recorded
multivitamin 1 tab PO DAILY Supplement 08/31/23
acetaminophen 500 mg tablet 1,000 mg PO DAILYPRN PRN mild pain 12/29/23
(Tylenol Extra Strength)
ibuprofen 200 mg tablet (Advil) 400 mg PO DAILYPRN PRN mild pain 12/29/23
--- NOTE | 2024-01-02 09:40 | W.PN.HOSP.TC ---
Today's Communication/Plan
-
.
Assessment / Plan
Assessment / Plan
Physical Exam
General: Well Developed, Well Nourished, Respiratory Distress and Obese
HEENT: NormoCephalic, Moist mucous membranes, Atraumatic, PERRLA and Oxygen
Respiratory: Crackles (faint bibasilar crackles)
Cardiac: S1/S2 and Tachycardia
GI: Soft, Non Tender, Non Distended and Normal Bowel Sounds
Rectal: No rectal bleeding
Genito-urinary: Clear Urine
Musculoskeletal: No Clubbing, No Cyanosis and No Edema
Skin: Warm and Dry
Neuro: AO x 3
Hematologic/Lymphatic: No Lymphadenopathy
Psych: Calm
Assessment: Patient is a 38-year-old male with chronic low back pain and sciatica who presented to the ED with severe headache, fever, neck stiffness, chills S/p removal of spinal stimulator, implantation and removal at [facility]. 2 hours into
his travel back he felt a headache and was seen at [place]. Patient had an MRI of his lumbar spine and a CT of his head which was okay. Patient felt better and was discharged home. He woke up the next morning with severe headache which prompted him
to come to the emergency room. He also had a fever. And was admitted for further evaluation and management of suspected meningitis.
#aseptic meningitis
Fluid studies consistent with likely meningitis slightly low sugar, elevated protein PCR negative
Per discussion with infectious disease patient may have different bacterial strains given instrumentation
With instrumentation is high risk for infection
On vancomycin and cefepime
Also on steroids to treat aseptic meningitis. Dose of steroids, to reduce to 6 mg TID from QID
Headaches have improved, patient is able to ambulate
Possibly dural tear is healing.
Continue antibiotics. May need to complete a course for bacterial meningitis
Cultures No growth so far
CSF PCR panel negative
WBC is coming down, possible spike also due to steroid
Per neurology: Gradual advance patient from bedrest starting 01/01/2024 with consideration for lumbar puncture repeat in several days to determine if there is improvement in CSF findings or should the patient have a decline in function
Neurology, neurosurgery infectious disease consultations appreciated
#Chronic back pain:
Spinal stimulator did give him pain relief
-L4-5 laminectomy in the past- in [facility]. 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
-Continue pain management.
Recommend OP follow up with neurosurgery/ Spinal surgery
#Hyperglycemia from steroids
#DVT prophylaxis:
-Enoxaparin.
# Full code
Total time spent to see the patient, examine the patient on the floor, review data and lab results, discuss treatment plan with patient and nursing staff around 55 minutes
Anticipated Discharge: > 48 hours
Subjective/Interval History
-
Date of Service: January 02, 2024
No fevers
No headache
No chest pain
No sob
Objective Data
-
Labs:
Laboratory Results
01/02/24
05:41
WBC 12.7 H
Hgb 13.2
Hct 38.3 L
Plt Count 300
Sodium 138
Potassium 4.4
Chloride 105
Carbon Dioxide 21 L
BUN 23 H
Creatinine 0.7
Glucose 126 H
Calcium 9.6
Vital Signs:
Vital Signs
Temp Pulse Resp BP Pulse Ox
98.6 F 52 16 131/70 97
01/02/24 08:00 01/02/24 08:00 01/02/24 08:00 01/02/24 08:00 01/02/24 08:00
I&O
01/01/24 01/02/24 01/03/24
06:59 06:59 06:59
Intake Total 1690 / 1690 1070 / 1070
Output Total 450 / 450
Balance 1690 / 1690 1070 / 1070 -450 / -450
[2024-01-02 13:25] VITALS: BP 128/70; PULSE 66; O2SAT 96
--- NOTE | 2024-01-02 14:43 | W.PN.ID1 ---
Date of Service
Date of Service: January 02, 2024
Today's Communication
Continue abx.
Assessment / Plan
Meningitis
Fever
MACHADO
Recent removal of spinal stimulator with suspected CSF leak
Recommendations:
CSF PCR panel negative, although given history of recent spinal stimulator implantation, likely organisms would be different than usual meningitis etiologies, and would include Staph aureus, Propionibacterium and streptococci (which are not included
on current PCR pane).
DDx also includes aseptic meningitis (i.e. inflammatory meningitis)
Cultures thus far negative for any gram-negative rods. Will discontinue further cefepime.
Continue with vancomycin through 01/13/2024.
[address] PICC line
Home infusion sheet will be placed on paper chart.
����������������������������������������������������������
Chief Complaint
-: Other (Meningitis (device-related))
Subjective / Review of Systems
Patient seen and examined. Reports overall feeling improved. Tolerated ambulation today.
Review of Systems: No Fever and No Chills
Vital Signs / Physical Exam
Vital Signs
Vital Signs
Temp Pulse Resp BP Pulse Ox
98.6 F 52 16 131/70 97
01/02/24 08:00 01/02/24 08:00 01/02/24 08:00 01/02/24 08:00 01/02/24 08:00
Physical Exam
Constitutional: No Acute Distress, Acutely Ill and Non-toxic
Eyes: Sclera Anicteric
Pulmonary: Non Labored
Gastrointestinal: Non Distended
Skin: Negative Rash or Jaundice
Neurological: Awake, Alert and Oriented; Negative Meningeal Signs
Psychological: Calm
Objective Data
Lab Data
Lab Results
01/02/24 05:41
01/02/24 05:41
Estimated Creat Clear > 125 ml/min 01/02/24 05:41
Total Bilirubin 1.1 mg/dl (0.2-1.3) 12/29/23 18:45
AST 23 U/L (17-59) 12/29/23 18:45
ALT 16 U/L (0-50) 12/29/23 18:45
Alkaline Phosphatase 65 U/L (38-126) 12/29/23 18:45
Most recent labs reviewed.
Micro Results:
12/29/23 22:15 Anaerobic Culture - Preliminary
Csf Culture pending. Anaerobic cultures are examined after 3
days incubation. Additional information to follow.
12/29/23 22:15 CSF Culture - Preliminary
Csf No Growth After 4 Days
Gram Stain - Preliminary
12/31/23 00:11 Blood Culture - Preliminary
Blood/Venous No Growth in 48 hours- Final report to follow
12/30/23 23:26 Blood Culture - Preliminary
Blood/Venous No Growth in 48 hours- Final report to follow
12/29/23 22:14 Meningitis/Encephalitis Panel (PCR) - Final
Csf
Meningitis Panel, CSF by PCR Final 12/30/23-0016
Escherichia coli K1 Not Detected
Haemophilus influenzae Not Detected
Listeria monocytogenes Not Detected
Neisseria meningitidis Not Detected
Cytomegalovirus (CMV) Not Detected
Streptococcus agalactiae Not Detected
Streptococcus pneumoniae Not Detected
Enterovirus Not Detected
Herpes simplex virus 1 Not Detected
Herpes simplex virus 2 Not Detected
Human herpesvirus 6 Not Detected
Human parechovirus Not Detected
Varicella zoster virus Not Detected
C. neoformans/gattii Not Detected
Imaging:
12/29/2023 CT head without contrast: No evidence of acute intracranial abnormality. Film personally viewed.
--- NOTE | 2024-01-02 14:44 | CM ---
Reviewed the chart notes and spoke with the patient and his parents at the bedside. Per patient, will need two weeks of home IV abx. CM continues to be available to patient/family and is monitoring medical plan for needs at discharge.
Plan: Home IV abx. Once script received will forward clinicals along with script to [facility] for pricing and referral will be sent to for PICC line management.
[2024-01-02 17:56] VITALS: BP 136/74
[2024-01-02] MEDS: SENOKOT-S 1 TABLET PO (20:45)
[2024-01-02] MEDS: MIRALAX 17 GRAMS PO (20:45)
[2024-01-02 23:41] VITALS: BP 143/83
[2024-01-03] MEDS: DECADRON 6 MG IV (01:13)
[2024-01-03] MEDS: VANCOCIN 275 MG IV ×3 (05:57→21:49)
[2024-01-03 07:46] VITALS: BP 138/75
--- NOTE | 2024-01-03 07:54 | PHA.VAN.FU ---
Vancomycin Assessment / Plan
- Assessment
Renal Function: No New Labs Today
In the past 24 hrs, patient has been: Afebrile
- Dosing Plan
Continue: Vanc 1250mg Q8H
- Monitoring Plan
If remains admitted, will consider repeat levels later this week to assess for accumulation
- Follow Up
Pharmacy will continue to follow.
Vancomycin Follow UP
- -
Patient Age: 38
Patient Sex: Male
Vancomycin Day #: 5
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
Requesting Provider: Dr Johnson
Pertinent Antimicrobial Allergies:
NKDA
Height / Weight:
Height 6 ft
Actual Weight 82.191 kg
IBW in k.6
Adjusted BW in k.4
Pertinent Past Medical History: spinal stimulator removal at [facility] 12/28
- Vital Signs / Lab Results
Temp Pulse Resp BP Pulse Ox
98.4 F 47 16 143/83 97
01/02/24 23:41 01/02/24 23:41 01/02/24 23:41 01/02/24 23:41 01/02/24 23:41
Lab Results - Hematology
12/31/23 01/01/24 01/02/24
05:30 08:08 05:41
WBC 21.8 H 17.9 H 12.7 H
Lab Results - Chemistry
12/31/23 01/01/24 01/02/24
05:30 08:08 05:41
BUN 21 H 21 H 23 H
Creatinine 0.8 0.7 0.7
Estimated Creat Clear > 125 > 125 > 125
Microbiology Results
12/31/23 00:11 Blood Culture - Preliminary
Blood/Venous No Growth in 72 hours- Final report to follow
12/30/23 23:26 Blood Culture - Preliminary
Blood/Venous No Growth in 72 hours- Final report to follow
05/09/24 22:15 Anaerobic Culture - Preliminary
Csf Culture pending. Anaerobic cultures are examined after 3
days incubation. Additional information to follow.
12/29/23 22:15 CSF Culture - Preliminary
Csf No Growth After 4 Days
Gram Stain - Preliminary
Therapeutic Drug Monitoring
Vancomycin Peak 23.9 ug/ml (18-26) 01/02/24 01:14
Vancomycin Trough 14.2 ug/ml (5-20) 01/02/24 05:41
[2024-01-03] MEDS: DECADRON IV (09:03)
--- NOTE | 2024-01-03 09:15 | W.DCSUMMARY ---
Discharge Summary
Discharge Data
Date of Admission: 12/29/23
Date of Discharge: 01/04/24
-
Pending Results: No
Hospital Course
38 years old male with chronic static pain presented to the emergency room with mild headache, fever, neck rigidity and photophobia. Patient was started immediately on intravenous antibiotic and steroid. He had lumbar puncture that showed
leukocytosis around 6000 white blood cells. Culture of cerebrospinal fluid did not reveal micro. Patient had a previous spinal cord stimulator for chronic pain related to lumbar spine surgery few years ago that was performed in [facility]. Patient
reported a chronic lower back discomfort with radiculopathy that was mostly positional. Patient had imaging studies that was suggestive of cerebrospinal fluid leak related to spinal cord stimulator per placement and subsequent removal. Patient
started to improve to improve with resolution of fever, headache. He was evaluated by neurosurgery team and there was no indication for immediate surgical intervention. Patient had history of seeking consultation and other centers including [place] [facility] and [facility]. His last spinal cord stimulator was placed in [facility]. Patient was evaluated weighted and followed by infectious diseases doctor and neurologist. Patient improved significantly with returning back to his baseline.
Patient had a follow-up appointment and [facility] on January 11. His doctors on [facility] were contacted and updated about his situation. Patient received intravenous vancomycin. Infectious disease doctor recommended to continue intravenous
antibiotic at home. Case management was involved. Patient remained hemodynamically stable and was discharged in a stable condition.
Physical Exam
General: Well Developed, Well Nourished, Respiratory Distress and Obese
HEENT: Normocephalic, Moist mucous membranes, Atraumatic, PERRLA and Oxygen
Respiratory: Crackles (faint bibasilar crackles)
Cardiac: S1/S2 and Tachycardia
GI: Soft, Non Tender, Non Distended and Normal Bowel Sounds
Rectal: No rectal bleeding
Genito-urinary: Clear Urine
Musculoskeletal: No Clubbing, No Cyanosis and No Edema
Skin: Warm and Dry
Neuro: AO x 3, non focal, he followed commands.
Hematologic/Lymphatic: No Lymphadenopathy
Psych: Calm.
Total discharge time spent to see the patient, examine the patient on the floor, review data and lab results, discuss discharge plan with patient, ID doctor, heel caser, and nursing staff around 65 minutes
Discharge Plan
-
Patient Disposition: Home with Home Care
Discharge Diagnosis/Procedures: Abrupt onset of headache and neck pain with fever, differential diagnosis includes presumed bacterial and aseptic meningitis.
Diet: Regular
Referrals:
Chinedu Lopez MD [Family Provider] -
Sirnivas Lopez DO [Active] - in two to three weeks
Prescriptions:
New
Vancomycin [Vancocin] 1250 MG
0.9% Sodium Chloride 250 ml [Nss] 250 ML
183.33 mls/hr IV Q8H
Ordered By: Kerri Harper MD
Last Taken: 01/04/24 14:13 275 mls
Protocol: None
Protocol Text:
DOSING PER PHARMACY
Please contact pharmacy with any questions.
Continued
multivitamin Tablet
1 tab PO DAILY
acetaminophen [Tylenol Extra Strength] 500 mg Tablet
1,000 mg PO DAILYPRN PRN (Reason: mild pain)
ibuprofen [Advil] 200 mg Tablet
400 mg PO DAILYPRN PRN (Reason: mild pain)
Discharge Orders:
Discharge Patient (As Directed); Ordered 01/03/24
Ordered By: Kerri Harper
Discharge Date and Time
Discharge Date/Time: 01/04/24 16:07
Print Language: UKRAINIAN
[2024-01-03] MEDS: SENOKOT-S 1 TABLET PO (09:18)
--- NOTE | 2024-01-03 10:05 | PN.CDI ---
Addendum entered and electronically signed by Kerri Harper MD 01/03/24 10:18:
_Sepsis-POA
Original Note:
CDI
- -
CDI:
Physician Documentation Request
Admit Date: 12/29/23 23:37
Dear Doctor Leroy,
Please review the following and provide your response in the progress notes.
Clinical Indicators:
Pt admitted with aseptic meningitis /possible bacterial meningitis/CSF leak
On admission Tmax 100.8, HR 102, Respiration 25, WBC 17.7 on Vancomycin / Cefepime
Please clarify which of the following most accurately describes the status of the patient's infection:
Sepsis-POA
- Systemic manifestations of infection, with 2 or more SIRS criteria which include:
- Fever >100.4 degrees F or hypothermia < 96.8 degrees F
- Leukocytosis - WBC > 12,000 or leukopenia - WBC < 4,000 or > 10% bands
- Tachycardia > 90 beats per minute
- Tachypnea - RR > 20 breaths per minute or PaCO2 , 32mmHg
Source: Merck Manual 2013
Aseptic Meningitis possible Bacterial Meningitis only , Without Systemic Illness
Other
Use of terms such as suspected, likely, concern for, or probable (associated with a specific diagnosis that is being evaluated, monitored, or treated as if it exists) are acceptable and can be coded in the inpatient setting, when documented at the
time of discharge.
Thank you,
Elham Stuart RN
CDI Specialist
[place] [facility]
Please use your independent medical judgment in providing your response.
--- NOTE | 2024-01-03 10:21 | W.PN.NEURO.1 ---
Today's Communication / Plan
-
-Dexamethasone course completed
-Continue antibiotic coverage per ID.
Advance activity
Neuro Assessment/Plan
Assessment
IMPRESSIONS/RECOMMENDATIONS:
Abrupt onset headache and neck pain
With highly abnormal CSF and recent extraction of dorsal root ganglion spinal cord stimulator
Differential diagnosis currently includes presumed bacterial and aseptic meningitis
There is the possibility of a dural tear leading to the entirety of changes with the CSF suggested by MRI of the lumbar spine performed prior to this admission
Plan
-Dexamethasone course completed
-Continue antibiotic coverage per ID.
Advance activity
-DVT prophylaxis with enoxaparin.
-Patient instructed to update his Neurosurgeon at [facility] with recent events.
Will continue to follow as outpatient.
Subjective/Objective
Subjective Data
Date of Service: January 03, 2024
Objective Data
Vital Signs
Temp Pulse Resp BP Pulse Ox
37.2 C 50 16 138/75 98
01/03/24 07:46 01/03/24 07:46 01/03/24 07:46 01/03/24 07:46 01/03/24 07:46
Lab Results
01/02/24 05:41
01/02/24 05:41
Sodium 138 mmol/L (135-145) 01/02/24 05:41
Potassium 4.4 mmol/L (3.5-5.1) 01/02/24 05:41
BUN 23 mg/dl (9-20) H 01/02/24 05:41
Glucose 126 mg/dl (70-99) H 01/02/24 05:41
Calcium 9.6 mg/dl (8.4-10.2) 01/02/24 05:41
Patient Allergies
No Known Allergies Allergy (Unverified 08/13/16 16:31)
--- NOTE | 2024-01-03 14:37 | W.PN.ID1 ---
Date of Service
Date of Service: January 03, 2024
Today's Communication
Continue abx.
Assessment / Plan
Meningitis (device-related)
Fever
MACHADO
Recent removal of spinal stimulator with suspected CSF leak
Recommendations:
CSF PCR panel negative, although given history of recent spinal stimulator implantation, likely organisms would be different than usual meningitis etiologies, and would include Staph aureus, Propionibacterium and streptococci (which are not included
on current PCR pane).
- DDx also includes aseptic meningitis (i.e. inflammatory meningitis)
Cultures negative for gram-negative rods. Cefepime discontinued.
Continue with vancomycin through 01/13/2024.
PICC line placed
Home infusion sheet placed on paper chart.
Follow-up in office in 2-3 weeks.
����������������������������������������������������������
Chief Complaint
-: Other (Meningitis (device-related))
Subjective / Review of Systems
Review of Systems: No Fever, No Chills and No Stiff Neck
Vital Signs / Physical Exam
Vital Signs
Vital Signs
Temp Pulse Resp BP Pulse Ox
99 F 50 16 138/75 98
01/03/24 07:46 01/03/24 07:46 01/03/24 07:46 01/03/24 07:46 01/03/24 07:46
Physical Exam
Constitutional: No Acute Distress, Comfortable and Non-toxic
Eyes: Sclera Anicteric
Pulmonary: Non Labored
Gastrointestinal: Non Distended
Extremities: Negative Cyanosis or Erythema
Neurological: Awake, Alert and Oriented; Negative Meningeal Signs
Psychological: Calm
Lines: PICC (RUE)
Objective Data
Lab Data
Lab Results
01/02/24 05:41
01/02/24 05:41
Estimated Creat Clear > 125 ml/min 01/02/24 05:41
Total Bilirubin 1.1 mg/dl (0.2-1.3) 12/29/23 18:45
AST 23 U/L (17-59) 12/29/23 18:45
ALT 16 U/L (0-50) 12/29/23 18:45
Alkaline Phosphatase 65 U/L (38-126) 12/29/23 18:45
Most recent labs reviewed.
Micro Results:
12/29/23 22:15 CSF Culture - Preliminary
Csf No Growth After 5 Days - Final Report
Gram Stain - Preliminary
12/31/23 00:11 Blood Culture - Preliminary
Blood/Venous No Growth in 72 hours- Final report to follow
12/30/23 23:26 Blood Culture - Preliminary
Blood/Venous No Growth in 72 hours- Final report to follow
12/29/23 22:15 Anaerobic Culture - Preliminary
Csf Culture pending. Anaerobic cultures are examined after 3
days incubation. Additional information to follow.
12/29/23 22:14 Meningitis/Encephalitis Panel (PCR) - Final
Csf
Meningitis Panel, CSF by PCR Final 12/30/23-0016
Escherichia coli K1 Not Detected
Haemophilus influenzae Not Detected
Listeria monocytogenes Not Detected
Neisseria meningitidis Not Detected
Cytomegalovirus (CMV) Not Detected
Streptococcus agalactiae Not Detected
Streptococcus pneumoniae Not Detected
Enterovirus Not Detected
Herpes simplex virus 1 Not Detected
Herpes simplex virus 2 Not Detected
Human herpesvirus 6 Not Detected
Human parechovirus Not Detected
Varicella zoster virus Not Detected
C. neoformans/gattii Not Detected
Imaging:
12/29/2023 CT head without contrast: No evidence of acute intracranial abnormality. Film personally viewed.
[2024-01-03 15:46] VITALS: BP 131/72
--- NOTE | 2024-01-03 15:58 | CM ---
Pt has [place] Medicaid.
Obtained ID IV antibiotics script.
Contacted Roxanne [facility] informed of case clinical, Piccu line, CXR faxed to [facility].
Spoke with Yvonne at [facility] VN to provide VN care and teaching on IV infusion.
[facility] needs to see if they can accept pt.
PLAN [facility] infusion with VN to be established.
--- NOTE | 2024-01-03 16:24 | W.PN.HOSP.TC ---
Today's Communication/Plan
-
Await dc planning
Assessment / Plan
Assessment / Plan
Physical Exam
General: Well Developed, Well Nourished, Respiratory Distress and Obese
HEENT: NormoCephalic, Moist mucous membranes, Atraumatic, PERRLA and Oxygen
Respiratory: Crackles (faint bibasilar crackles)
Cardiac: S1/S2 and Tachycardia
GI: Soft, Non Tender, Non Distended and Normal Bowel Sounds
Rectal: No rectal bleeding
Genito-urinary: Clear Urine
Musculoskeletal: No Clubbing, No Cyanosis and No Edema
Skin: Warm and Dry
Neuro: AO x 3
Hematologic/Lymphatic: No Lymphadenopathy
Psych: Calm
Assessment: Patient is a 38-year-old male with chronic low back pain and sciatica who presented to the ED with severe headache, fever, neck stiffness, chills S/p removal of spinal stimulator, implantation and removal at [facility]. 2 hours into
his travel back he felt a headache and was seen at [facility]. Patient had an MRI of his lumbar spine and a CT of his head which was okay. Patient felt better and was discharged home. He woke up the next morning with severe headache which prompted him
to come to the emergency room. He also had a fever. And was admitted for further evaluation and management of suspected meningitis.
#aseptic meningitis
Fluid studies consistent with likely meningitis slightly low sugar, elevated protein PCR negative
Per discussion with infectious disease patient may have different bacterial strains given instrumentation
With instrumentation is high risk for infection
s/p vancomycin and cefepime
Finished course of steroid.
Headaches have improved, patient is able to ambulate
Possibly dural tear is healing.
Continue antibiotics. To finish course of vancomycin.
Cultures No growth so far
CSF PCR panel negative
WBC is coming down, possible spike also due to steroid
Per neurology: no need to repeat images, pt can f/w his neurosurgery doctor in [facility].
Neurology, neurosurgery infectious disease consultations appreciated
#Chronic back pain:
Spinal stimulator did give him pain relief
-L4-5 laminectomy in the past- in [place]. 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
-Continue pain management.
Recommend OP follow up with neurosurgery/ Spinal surgery
#Hyperglycemia from steroids
#DVT prophylaxis:
-Enoxaparin.
# Full code
Total time spent to see the patient, examine the patient on the floor, review data and lab results, discuss treatment plan with patient and nursing staff around 47 minutes
Anticipated Discharge: Today
Subjective/Interval History
-
Date of Service: January 03, 2024
No complaints
Objective Data
-
Vital Signs:
Vital Signs
Temp Pulse Resp BP Pulse Ox
99 F 59 16 131/72 97
01/03/24 15:46 01/03/24 15:46 01/03/24 15:46 01/03/24 15:46 01/03/24 15:46
I&O
01/02/24 01/03/24 01/04/24
06:59 06:59 06:59
Intake Total 1070 / 1070 1130 / 1130
Output Total 1700 / 1700
Balance 1070 / 1070 -570 / -570
--- NOTE | 2024-01-03 16:30 | CM ---
Reviewed chart, placed a call to [facility] again as [facility] is unable to accept patient. Patient's insurance is [place] [employer] starting 01/03.
Spoke with Lizzy who confirmed that she can accept patient. Will fax updated clinical to her. Patient updated.
Plan: Case management will continue to follow and assist with discharge planning. Will fax referral through [employer] to [facility].
[2024-01-03 23:33] VITALS: BP 135/83
[2024-01-04] MEDS: VANCOCIN 275 MG IV ×2 (05:27→14:13)
[2024-01-04 07:45] VITALS: BP 146/82
--- NOTE | 2024-01-04 09:22 | CM ---
Addendum entered by Jaylin Das RN 01/04/24 11:20:
Roxanne from [facility] will be out after 12pm to instruction the patient on IV administration. Patient's mother will also be in attendance. Attending and ID updated. Patient will be followed by [facility] RN for PICC dressing changes.
Original Note:
CM spoke with lialola Oliveira with [facility]. IV Abx have not been finalized with regards to payment source. Per Roxanne, patient was to start with [facility] today. They will need to confirmed coverage and cost. Per Roxanne, if [facility]
is active, they will follow for VN needs not [facility]. Additional labs and height and weight faxed to [facility] ([phone]). CM continues to be available to patient/family and is monitoring medical plan for needs at discharge.
Plan: Discharge to home on IV abx. Awaiting response from [facility].
--- NOTE | 2024-01-04 10:58 | W.PN.HOSP.TC ---
Today's Communication/Plan
-
dc
Assessment / Plan
Assessment / Plan
Physical Exam
General: Well Developed, Well Nourished, Respiratory Distress and Obese
HEENT: NormoCephalic, Moist mucous membranes, Atraumatic, PERRLA and Oxygen
Respiratory: Crackles (faint bibasilar crackles)
Cardiac: S1/S2 and Tachycardia
GI: Soft, Non Tender, Non Distended and Normal Bowel Sounds
Rectal: No rectal bleeding
Genito-urinary: Clear Urine
Musculoskeletal: No Clubbing, No Cyanosis and No Edema
Skin: Warm and Dry
Neuro: AO x 3
Hematologic/Lymphatic: No Lymphadenopathy
Psych: Calm
Assessment: Patient is a 38-year-old male with chronic low back pain and sciatica who presented to the ED with severe headache, fever, neck stiffness, chills S/p removal of spinal stimulator, implantation and removal at [facility]. 2 hours into
his travel back he felt a headache and was seen at [place]. Patient had an MRI of his lumbar spine and a CT of his head which was okay. Patient felt better and was discharged home. He woke up the next morning with severe headache which prompted him
to come to the emergency room. He also had a fever. And was admitted for further evaluation and management of suspected meningitis.
#aseptic meningitis
Fluid studies consistent with likely meningitis slightly low sugar, elevated protein PCR negative
Per discussion with infectious disease patient may have different bacterial strains given instrumentation
With instrumentation is high risk for infection
s/p vancomycin and cefepime
Finished course of steroid.
Headaches have improved, patient is able to ambulate
Possibly dural tear is healing.
Continue antibiotics. To finish course of vancomycin.
Cultures No growth so far
CSF PCR panel negative
WBC is coming down, possible spike also due to steroid
Per neurology: no need to repeat images, pt can f/w his neurosurgery doctor in [facility].
Neurology, neurosurgery infectious disease consultations appreciated
#Chronic back pain:
Spinal stimulator did give him pain relief
-L4-5 laminectomy in the past- in [place]. 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
-Continue pain management.
Recommend OP follow up with neurosurgery/ Spinal surgery
#Hyperglycemia from steroids
#DVT prophylaxis:
-Enoxaparin.
# Full code
Total discharge time spent to see the patient, examine the patient on the floor, review data and lab results, discuss treatment and discharge plan with patient and nursing staff around 67 minutes
Anticipated Discharge: Today
Subjective/Interval History
-
Date of Service: January 04, 2024
No complaints
Objective Data
-
Vital Signs:
Vital Signs
Temp Pulse Resp BP Pulse Ox
98.1 F 57 16 146/82 97
01/04/24 07:45 01/04/24 07:45 01/04/24 07:45 01/04/24 07:45 01/04/24 07:45
I&O
01/03/24 01/04/24 01/05/24
06:59 06:59 06:59
Intake Total 1130 / 1130 970 / 970
Output Total 1700 / 1700 775 / 775
Balance -570 / -570 195 / 195
--- NOTE | 2024-01-04 11:35 | W.PN.ID1 ---
Date of Service
Date of Service: January 04, 2024
Today's Communication
Continue abx.
Assessment / Plan
Meningitis (device-related)
Fever
MACHADO
Recent removal of spinal stimulator with suspected CSF leak
Recommendations:
CSF PCR panel negative, although given history of recent spinal stimulator implantation, likely organisms would be different than usual meningitis etiologies, and would include Staph aureus, Propionibacterium and streptococci (which are not included
on current PCR pane).
- DDx also includes aseptic meningitis (i.e. inflammatory meningitis)
Cultures negative for gram-negative rods. Cefepime previously discontinued.
--> Continue with vancomycin through 01/13/2024.
PICC line placed
Home infusion sheet placed on paper chart.
Follow-up in office in 2-3 weeks.
����������������������������������������������������������
Chief Complaint
-: Other (Meningitis (device-related))
Subjective / Review of Systems
Review of Systems: No Fever, No Chills and No Stiff Neck
Vital Signs / Physical Exam
Vital Signs
Vital Signs
Temp Pulse Resp BP Pulse Ox
98.1 F 57 16 146/82 97
01/04/24 07:45 01/04/24 07:45 01/04/24 07:45 01/04/24 07:45 01/04/24 07:45
Physical Exam
Constitutional: No Acute Distress, Comfortable and Non-toxic
Eyes: Sclera Anicteric
Pulmonary: Non Labored
Gastrointestinal: Non Distended
Skin: Negative Rash or Jaundice
Neurological: Awake, Alert and Oriented
Psychological: Calm
Lines: PICC (RUE)
Objective Data
Lab Data
Lab Results
01/02/24 05:41
01/02/24 05:41
Estimated Creat Clear > 125 ml/min 01/02/24 05:41
Total Bilirubin 1.1 mg/dl (0.2-1.3) 12/29/23 18:45
AST 23 U/L (17-59) 12/29/23 18:45
ALT 16 U/L (0-50) 12/29/23 18:45
Alkaline Phosphatase 65 U/L (38-126) 12/29/23 18:45
Most recent labs reviewed.
Micro Results:
12/29/23 22:15 CSF Culture - Preliminary
Csf No Growth After 5 Days - Final Report
Gram Stain - Preliminary
12/31/23 00:11 Blood Culture - Preliminary
Blood/Venous No Growth in 4 days- Final report to follow
12/30/23 23:26 Blood Culture - Preliminary
Blood/Venous No Growth in 4 days- Final report to follow
12/29/23 22:15 Anaerobic Culture - Preliminary
Csf Culture pending. Anaerobic cultures are examined after 3
days incubation. Additional information to follow.
12/29/23 22:14 Meningitis/Encephalitis Panel (PCR) - Final
Csf
Meningitis Panel, CSF by PCR Final 12/30/23-0016
Escherichia coli K1 Not Detected
Haemophilus influenzae Not Detected
Listeria monocytogenes Not Detected
Neisseria meningitidis Not Detected
Cytomegalovirus (CMV) Not Detected
Streptococcus agalactiae Not Detected
Streptococcus pneumoniae Not Detected
Enterovirus Not Detected
Herpes simplex virus 1 Not Detected
Herpes simplex virus 2 Not Detected
Human herpesvirus 6 Not Detected
Human parechovirus Not Detected
Varicella zoster virus Not Detected
C. neoformans/gattii Not Detected
Imaging:
12/29/2023 CT head without contrast: No evidence of acute intracranial abnormality. Film personally viewed.
--- NOTE | 2024-01-04 15:38 | PHA.VAN.FU ---
Vancomycin Assessment / Plan
- Assessment
Renal Function: No New Labs Today
In the past 24 hrs, patient has been: Afebrile
- Dosing Plan
Continue: Vanc 1250mg Q8H
- Monitoring Plan
Trough Level: 01/04 05:30 (prior to 0600 dose) - if remains admitted
Monitoring Comments: BUN & SCR ordered per protocol (if remains admitted)
If patient discharged, vanc trough and labs may be postponed until appropriate for outpatient monitoring
- Follow Up
Pharmacy will continue to follow.
Vancomycin Follow UP
- -
Patient Age: 38
Patient Sex: Male
Vancomycin Day #: 6
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
Requesting Provider: Dr Johnson
Pertinent Antimicrobial Allergies:
NKDA
Height / Weight:
Height 6 ft
Actual Weight 82.191 kg
IBW in k.6
Adjusted BW in k.4
Pertinent Past Medical History: spinal stimulator removal at [facility] 12/28
- Vital Signs / Lab Results
Temp Pulse Resp BP Pulse Ox
98.1 F 57 16 146/82 97
01/04/24 07:45 01/04/24 07:45 01/04/24 07:45 01/04/24 07:45 01/04/24 07:45
Lab Results - Hematology
01/02/24
05:41
WBC 12.7 H
Lab Results - Chemistry
01/02/24
05:41
BUN 23 H
Creatinine 0.7
Estimated Creat Clear > 125
Microbiology Results
12/29/23 22:15 CSF Culture - Preliminary
Csf No Growth After 5 Days - Final Report
Gram Stain - Preliminary
12/31/23 00:11 Blood Culture - Preliminary
Blood/Venous No Growth in 4 days- Final report to follow
12/30/23 23:26 Blood Culture - Preliminary
Blood/Venous No Growth in 4 days- Final report to follow
12/29/23 22:15 Anaerobic Culture - Preliminary
Csf Culture pending. Anaerobic cultures are examined after 3
days incubation. Additional information to follow.
Therapeutic Drug Monitoring
Vancomycin Peak 23.9 ug/ml (18-26) 01/02/24 01:14
Vancomycin Trough 14.2 ug/ml (5-20) 01/02/24 05:41
[2024-01-04 15:45] VITALS: BP 126/72
== END 2024-01-04 16:07 | disposition home health service (06) | DRG 91 ==
LOC: 2 NORTH 23:37
PROVIDERS: Family Medicine; Hospitalist; Radiology Diagnostic Radiology; Student in an Organized Health Care Education/Training Program; ADMITTING PHYSICIAN Student in an Organized Health Care Education/Training Program; ATTENDING PHYSICIAN Internal Medicine; CONSULT PHYSICIAN Internal Medicine Infectious Disease; CONSULT PHYSICIAN Neurological Surgery; EMERGENCY PHYSICIAN Emergency Medicine; FAMILY PHYSICIAN Family Medicine; OTHER PHYSICIAN Psychiatry & Neurology Neurology
PROC: 009U3ZX Drainage of Spinal Canal, Percutaneous Approach, Diagnostic (ICD-10-PCS; 2023-12-29)
PROC: 02HV33Z Insertion of Infusion Device into Superior Vena Cava, Percutaneous Approach (ICD-10-PCS; 2024-01-03)
DX: T85.733A Infection and inflammatory reaction due to implanted electronic neurostimulator of spinal cord, electrode (lead), initial encounter (principal); A41.9 Sepsis, unspecified organism; G00.9 Bacterial meningitis, unspecified; G96.00 Cerebrospinal fluid leak, unspecified; G97.41 Accidental puncture or laceration of dura during a procedure; Y92.234 Operating room of hospital as the place of occurrence of the external cause; G89.29 Other chronic pain; M54.40 Lumbago with sciatica, unspecified side; R51.9 Headache, unspecified; G96.198 Other disorders of meninges, not elsewhere classified; G96.191 Perineural cyst; Y65.8 Other specified misadventures during surgical and medical care; R73.9 Hyperglycemia, unspecified; Y84.8 Other medical procedures as the cause of abnormal reaction of the patient, or of later complication, without mention of misadventure at the time of the procedure; Y92.9 Unspecified place or not applicable
CPT/HCPCS: 62270; 70450; 71045; 80048; 80053; 80202; 81003; 82945; 83735; 84157; 85025; 85027; 87015; 87040; 87070; 87075; 87205; 87483; 89051; 93005; 96361; 96365; 96366; 96375; 97162; 99285

== ENCOUNTER 2024-01-18 17:31 | Emergency (ER) | payer OTHER, SELFPAY ==
[2024-01-18 17:35] VITALS: BP 122/91
[2024-01-18 17:57] LABS: % Basophils 0.4 % (0-2); % Eosinophils 6.4 % (0-6); % Immature Granulocytes 1.1 % (0-0.5); % Monocytes 7.2 % (1.7-9.3); % Neutrophils 72.9 % (42.2-75.2); Absolute Basophils 0.1 10^3/uL (0-0.2); Absolute Eosinophils 0.8 10^3/uL (0-0.7); Absolute Immature Granulocytes 0.1 10^3/uL (0-0.05); Absolute Lymphocytes 1.6 10^3/uL (1.2-3.4); Absolute Monocytes 0.9 10^3/uL (0.1-0.6); Absolute Neutrophils 9.5 10^3/uL (1.4-6.5); Hematocrit 40.9 % (39.0-52.0); Mean Corp Hgb Conc. 34.2 g/dL (33.0-37.0); Mean Corpuscular Hgb 28.5 pg (27.0-31.0); Mean Corpuscular Volume 83.1 fL (80.0-94.0); Nucleated Red Blood Cells % 0 % (-); Platelet Count 342 10^3/uL (130-400); Red Blood Cell Count 4.92 10^6/uL (4.70-6.10); Red Cell Dist. Width 13.1 % (11.5-14.5)
[2024-01-18 18:23] LABS: ALT (SGPT) 191 U/L (0-50); AST (SGOT) 59 U/L (17-59); Albumin 4.2 g/dl (3.5-5.0); Alkaline Phosphatase 153 U/L (38-126); Blood Urea Nitrogen 14 mg/dl (9-20); Calcium 9.1 mg/dl (8.4-10.2); Carbon Dioxide 27 mmol/L (22-30); Chloride 99 mmol/L (98-107); Glucose 149 mg/dl (70-99); Potassium 4.5 mmol/L (3.5-5.1); Sodium 136 mmol/L (135-145); Total Bilirubin 0.6 mg/dl (0.2-1.3); Total Protein 6.6 g/dl (6.3-8.2); eGFR > 60.00
--- NOTE | 2024-01-18 18:56 | ED.GENMED ---
History of Present Illness
General
Chief Complaint: Allergic Reaction
Time Seen by Provider: 01/18/24 18:17
Travel History
Have you had any contact with someone who has COVID-19?: No
Do you have any symptoms of coronavirus? Fever > 100 degrees, chills, cough, shortness of breath, sore throat, loss of taste or smell, muscle aches, or headache?: No
History of Present Illness
History of Present Illness:
38-year-old male presents emergency department for evaluation of diffuse red and itchy rash to the entire body developing over the past 3 to 4 days. The patient recently completed a course of IV vancomycin for 2 weeks due to meningitis caused by
infected spinal stimulator. His PICC line was removed 2 days ago. He followed up with his infectious disease specialist who is concerned for possible dress syndrome and referred him to the emergency department. Patient denies any abdominal pain,
chest pain, coughing, or URI symptoms. He did have a sore throat yesterday but this resolved today. He had transaminitis on outpatient labs as well as a fever of 101 Fahrenheit today.
Past History
Past History
ED Past Medical History: Other (spinal meningitis _2023)
ED Past Surgical History: Orthopedic (L4-5 hemilaminectomy 2017) and Other (spinal cord stimulator inserted and removed)
Social History
Tobacco: Non-smoker
Alcohol: None
Drug: None
Employment: Employed
Family History
Family History: Other (reviewed and non-contributory)
Review of Systems
Review of Systems
Allergies reviewed?: Yes
All Other Systems: ROS reviewed and negative except as documented in HPI and ROS
Phy Exam
Physical Exam
Physical Exam:
GEN: Well appearing, NAD, WDWN
Eyes: PERRLA, EOMs intact, no scleral icterus
HENT: NCAT, oral mucosa moist, no JVD, no cervical adenopathy.
Lungs: CTAB, no wheezes, rales, rhonchi, normal chest wall excursion
Cardiac: RRR, no M/R/G, no peripheral edema. Radial pulses 2+ bilat
Abdomen: S, NT, ND, NABS, no masses or hepatosplenomegaly
Neuro: AO x 3, no focal deficits to BUE/BLE, normal sensation throughout
MSK: No gross deformity or ecchymosis. No edema. No digital clubbing
Skin: Widespread confluent maculopapular exanthem, blanchable, involves essentially the entire body but seems to clear the distal extremities and clears fully to the palms and soles, no mucosal involvement
Psych: Calm, cooperative, proper hygiene
Course
Orders/Labs/Results
Orders:
Orders
01/18/24 17:45
CMP [Comprehensive Metabolic Panel] Urgent
Complete Blood Count/With Diff Urgent
01/18/24 18:55
CT Abd/Pel (IV only)-DH only Urgent
Comment:
Reason For Exam: fever, transaminitis
01/18/24 19:14
Monotest Urgent
01/18/24 20:33
Urinalysis Reflex To Culture Urgent
Date Specimen was Collected: 01/18/24
Time Specimen was Collected: 20:21
01/18/24 20:53
Dexamethasone Sod Phosphate [Decadron] 10 mg IV NOW STA
Abnormal Lab Results
01/18/24
17:45
WBC 13.0 H 10^3/uL
(4.8-10.8)
Abs Immat Gran (auto) 0.1 H 10^3/uL
(0-0.05)
Absolute Neuts (auto) 9.5 H 10^3/uL
(1.4-6.5)
Absolute Monos (auto) 0.9 H 10^3/uL
(0.1-0.6)
Absolute Eos (auto) 0.8 H 10^3/uL
(0-0.7)
Immature Gran % 1.1 H %
(0-0.5)
Lymphocytes % 12.0 L %
(20.5-51.1)
Eosinophils % 6.4 H %
(0-6)
Glucose 149 H mg/dl
(70-99)
ALT 191 H U/L
(0-50)
Alkaline Phosphatase 153 H U/L
(38-126)
01/18/24 17:45
01/18/24 17:45
Vital Signs
Initial and Last Documented VS:
Initial Vital Signs
Temp Pulse Resp BP Pulse Ox
99.2 F 95 20 122/91 98
01/18/24 17:35 01/18/24 17:35 01/18/24 17:35 01/18/24 17:35 01/18/24 17:35
Last Documented Vital Signs
Temp Pulse Resp BP Pulse Ox
99.2 F 95 20 122/91 98
01/18/24 17:35 01/18/24 17:35 01/18/24 17:35 01/18/24 17:35 01/18/24 17:35
MDM/Problems Addressed
MDM/Problems Addressed:
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 He is clinically otherwise well with
normal renal function and stable vital signs thus we will treat with a 2-week tapering course of prednisone. Remainder workup reveals no alternative infectious etiology
*Critical Care Note
Total Time (30-74mins, 75-104mins- exclusive of procedures): Not Applicable
ED Attending Note
-
Portions of this chart may have been created with voice recognition software.� Occasional wrong word or��sound alike� substitutions may have occurred due to the inherent limitations of voice recognition software.
Discharge Plan
Departure
Patient Disposition: Home (Routine Discharge)
Date of Disposition: 01/18/24
Time of Disposition: 20:55
Patient with high blood pressure during this ER visit?: No
Discharge Problem:
DRESS syndrome
Instructions: Adverse Drug Reactions, Adult ED
Prescriptions:
New
prednisone 10 mg tablet
10 mg PO DIRECTED Qty: 43 0RF
Rx Instructions:
Once daily as follows: 60, 60, 50, 50, 40, 40, 30, 30, 20, 20, 10, 10, 5, 5
No Action
multivitamin Tablet
1 tab PO DAILY
acetaminophen [Tylenol Extra Strength] 500 mg Tablet
1,000 mg PO DAILYPRN PRN (Reason: mild pain)
ibuprofen [Advil] 200 mg Tablet
400 mg PO DAILYPRN PRN (Reason: mild pain)
Vancomycin [Vancocin] 1250 MG
0.9% Sodium Chloride 250 ml [Nss] 250 ML
183.33 mls/hr IV Q8H
Ordered By: Kerri Harper MD
Last Taken: Unknown
Protocol: None
Protocol Text:
DOSING PER PHARMACY
Please contact pharmacy with any questions.
Referrals:
Chinedu Lopez MD [Family Provider] -
Activity Restrictions/Additional Instructions:
Return to the ER if symptoms worsen
Have your liver enzymes checked early next week by your primary doctor; if increasing, you may need hospitalization
Interventions
Interventions:
*Risk Screen - Suicide Last Done: 01/18/24 17:35
*General Assessment Last Done: 01/18/24 17:35
*Neglect/Abuse Screening Last Done: 01/18/24 17:35
ED- Fall Risk Assessment Last Done: 01/18/24 18:20
*Nursing Disposition Last Done: 01/18/24 21:09
ED- Cardiac Assessment Last Done: 01/18/24 18:20
ED- Pulmonary Assessment Last Done: 01/18/24 18:20
ED-Skin Assessment Last Done: 01/18/24 18:20
Discharge Date and Time
Discharge Date/Time: 01/18/24 21:09
Print Language: JAPANESE
[2024-01-18 19:51] LABS: Monotest Negative (Negative)
[2024-01-18 20:40] LABS: Urine Albumin Negative (Neg - Trace); Urine Bilirubin Negative (Negative); Urine Character Clear (Clear); Urine Color Yellow; Urine Glucose Negative (Negative); Urine Ketone Negative (Negative); Urine Leukocyte Negative (Negative); Urine Nitrite Negative (Negative); Urine Occult Blood Negative (Negative); Urine Urobilinogen Negative (Neg - 1+); Urine pH 6.5 (5.0-9.0)
[2024-01-18] MEDS: DECADRON 10 MG IV (21:02)
== END 2024-01-18 21:09 | disposition home or self-care (01) ==
LOC: EMR 17:31
PROVIDERS: Emergency Medicine; Physician Assistant; EMERGENCY PHYSICIAN Student in an Organized Health Care Education/Training Program; FAMILY PHYSICIAN Family Medicine
DX: D72.12 Drug rash with eosinophilia and systemic symptoms syndrome (principal); R21 Rash and other nonspecific skin eruption; R50.9 Fever, unspecified; L29.9 Pruritus, unspecified; R74.01 Elevation of levels of liver transaminase levels; Z86.61 Personal history of infections of the central nervous system
CPT/HCPCS: 99285; 96374; 74177; 80053; 81003; 85025; 86308; Q9967